=== PATIENT | female | born 2000 | race Caucasian/White ===

== ENCOUNTER 2022-07-27 21:38 | Emergency (ER) | payer OTHER, SELFPAY ==
--- NOTE | ~2022-07-27 | XR_ITS ---
EXAMINATION: XR chest 2V 07/27/2022 22:11 INDICATION: Shortness of breath. Chest pain. PROCEDURE: 2 view chest COMPARISON: 04/10/2006 FINDINGS: The lungs are clear. The cardiomediastinal silhouette is within normal limits. There are no pleural effusions. There is no pneumothorax suspected. IMPRESSION: 1: NO ACUTE CARDIOPULMONARY DISEASE. Reviewed, dictated and finalized at location A.
--- NOTE | 2022-07-27 21:40 | ECG_ITS ---
Measurements Intervals [place] Rate: 98 P: 42 MI: 128 QRS: 43 QRSD: 87 T: 48 QT: 330 QTc: 421 Interpretive Statements SINUS RHYTHM BASELINE ARTIFACT- I, II, AVR, AVL NORMAL ECG NO PREVIOUS ECG AVAILABLE FOR COMPARISON Electronically Signed On 07-28-2022 8:06:32 CDT by Chi Burton D.O.
[2022-07-27 21:41] VITALS: BP 145/95; PULSE 89; RESP 20; TEMP 36.9; O2SAT 100
[2022-07-27 23:44] VITALS: BP 126/76; PULSE 63; RESP 18; TEMP 37; O2SAT 100
[2022-07-27 23:56] VITALS: PULSE 72
[2022-07-28 00:03] VITALS: BP 123/72; PULSE 67; RESP 16; O2SAT 100
[2022-07-28 00:44] VITALS: BP 119/67; PULSE 71; RESP 17; O2SAT 100
[2022-07-28 01:20] LABS: Basophils Percent Auto 0.4 % (0.2-1.2); Eosinophils Absolute Auto 0.1 K/mm3 (0-0.3); Eosinophils Percent Auto 1.9 % (0-4.4); Hematocrit 40.5 % (37.0-47.0); Hemoglobin 13.8 g/dL (12.0-15.0); Immature Granulocyte Absolute 0.02 K/mm3 (0.00-0.031); Immature Granulocyte Percent A 0.3 % (0-0.5); Lymphocytes Absolute Auto 2.63 K/mm3 (0.9-3.2); Lymphocytes Percent Auto 38.2 % (18.3-44.2); Mean Corpuscular HGB Conc 34.1 g/dl (32-36); Mean Corpuscular Hemoglobin 30.9 pg (26-34); Mean Corpuscular Volume 90.8 fl (80-100); Mean Platelet Volume 9.3 fl (7.4-10.4); Monocytes Absolute Auto 0.5 K/mm3 (0.1-0.6); Monocytes Percent Auto 7.1 % (2.6-8.5); Neutrophils Absolute Auto 3.6 K/mm3 (1.3-6.7); Neutrophils Percent Auto 52.1 % (45.5-73.1); Platelet Count Result 264 k/mm3 (150-375); Red Blood Count 4.46 M/mm3 (4.2-5.4); Red Cell Distribution Width 12.1 % (11.5-14.5); White Blood Count 6.9 K/mm3 (4.5-10.0)
--- NOTE | 2022-07-28 01:28 | ED.SOB ---
HPI - SOB/Dyspnea General Chief Complaint: Shortness of Breath/Dyspnea <MASHA Gannon Last Filed: 07/28/22 02:09> Stated Complaint: shortness of breath x Saturday <MASHA Gannon Last Filed: 07/28/22 02:09> Time Seen by Provider: 07/28/22 00:19 <MASHA Gannon Last Filed: 07/28/22 02:09> Source: patient <MASHA Gannon Last Filed: 07/28/22 02:09> Mode of arrival: ambulatory <MASHA Gannon Last Filed: 07/28/22 02:09> Limitations: no limitations <MASHA Gannon Last Filed: 07/28/22 02:09> History of Present Illness HPI Narrative: Patient is a 22-year-old female who presents to the ED with report of chest pain and difficulty breathing. Patient reports she had a panic attack 3 days ago and developed chest pain afterwards. Pain is midsternal. Worse with squeezing arms together, movement. Pain has been fairly constant. She has not tried anything for the pain. Patient also reports having intermittent shortness of breath over the last few days. No significant aggravating or alleviating factors to this. She denies any recent cough or cold symptoms, fever, abdominal pain, nausea, vomiting, lower extremity pain or swelling, history of blood clots or heart disease. Patient does have a Mirena IUD. Patient does mention having increased anxiety recently. She is currently in the process of being switched from buspirone to sertraline. She follows with her primary care doctor for this. She denies any SI or HI. <MASHA Gannon Last Filed: 07/28/22 02:09> Related Data Home Medications: Home Medications Medication Instructions Recorded Confirmed levonorgestrel [Mirena] intrauterine 06/07/22 07/19/22 <MASHA Gannon Last Filed: 07/28/22 02:09> Allergies/Adverse Reactions: Allergies Allergy/AdvReac Type Severity Reaction Status Date / Time cephalexin [From Keflex] AdvReac Mild Hives Verified 07/27/22 21:46 <Alee Hawkins PA-C - Last Filed: 07/28/22 02:09> Review of Systems Review of Systems: CONSTITUTIONAL: Denies fever, chills, or sweats. ENT: Denies rhinorrhea, congestion, sore throat. CARDIOVASCULAR: See HPI. RESPIRATORY: See HPI. GASTROINTESTINAL: Denies abdominal pain, nausea, vomiting, or diarrhea. GENITOURINARY: Denies dysuria or hematuria. SKIN: Denies rash or itching. MUSCULOSKELETAL: Denies back pain, joint pain, or myalgia. <Alee Hawkins PA-C - Last Filed: 07/28/22 02:09> All systems reviewed & are unremarkable except as noted in HPI and below <Alee Hawkins PA-C - Last Filed: 07/28/22 02:09> [facility] Past Medical History Medical History: Medical History Allergies Anxiety BMI 32.0-32.9,adult BMI 35.0-35.9,adult Chest tightness Encounter to establish care Migraine Nausea and vomiting Obese Seasonal allergies Vapes nicotine containing substance <Alee Hawkins PA-C - Last Filed: 07/28/22 02:09> Family History Family History: Family History Father Hypertension Depression Heart disease Mother Depression Thyroid disorder Grandparent Depression Heart disease <Alee Hawkins PA-C - Last Filed: 07/28/22 02:09> Social History Social History: Social History Smoking status: Current every day smoker Tobacco type: e-cigarettes/vaping Alcohol intake: current Alcohol use details: Socially Substance use: never Substance use type: does not use Lack of Transportation: No Lack of Food: Never True Current Housing: I Have Housing Concerned About Future Housing: No Difficulty Paying Gas/Electric Bills: No Difficulty Paying for Meds: No Currently Unemployed: No Education: High School Diploma/GED Difficulty w/ Childcare or Family Care: No Living
[2022-07-28 01:31] LABS: Alanine Aminotransferase 30 U/L (6-35); Albumin Level 4.7 g/dL (3.5-5.1); Alkaline Phosphatase 57 U/L (38-126); Anion Gap 8 mmol/L (8-16); Aspartate Amino Transferase 24 U/L (14-36); Bilirubin,Total 0.4 mg/dL (0.2-1.3); Blood Urea Nitrogen 12 mg/dL (7-17); Calcium 9.3 mg/dL (8.4-10.2); Carbon Dioxide 27 mmol/L (22-30); Chloride 106 mmol/L (98-107); Estimated CRCL calculation 169 ml/min; Estimated Glomerular Filt Rate > 60; Glucose 88 mg/dL (65-110); Potassium 3.9 mmol/L (3.4-5.0); Sodium 141 mmol/L (137-145)
[2022-07-28 01:42] LABS: Troponin I < 0.012 ng/mL (0.000-0.034)
[2022-07-28 02:03] VITALS: BP 127/78; PULSE 81; RESP 17; O2SAT 100
== END 2022-07-28 02:04 | disposition home or self-care (01) ==
PROVIDERS: Emergency Provider Physician Assistant; PCP Nurse Practitioner Family
DX: R07.89 Other chest pain (principal); F41.9 Anxiety disorder, unspecified; R06.81 Apnea, not elsewhere classified; F17.290 Nicotine dependence, other tobacco product, uncomplicated
CPT/HCPCS: 36415; 71046; 80053; 84484; 85025; 85380; 93005; 99284

== ENCOUNTER 2023-10-03 18:42 | Emergency (ER) | payer OTHER, SELFPAY ==
[2023-10-03 18:52] VITALS: BP 132/74; PULSE 72; RESP 20; TEMP 36.7; O2SAT 100
--- NOTE | 2023-10-03 19:16 | ED.URI ---
HPI - URI/Sore Throat General Chief Complaint: Upper Respiratory Infection Stated Complaint: throat/headache Time Seen by Provider: 10/03/23 19:07 Source: patient, RN notes reviewed and old records reviewed Mode of arrival: ambulatory Limitations: no limitations History of Present Illness HPI Narrative: 23 year old female who [facility] with complaints of headache for one week duration and sore throat for the past 2 days. patient states that she has not had a fever, chills or sweats noted or any body aches, Patient reports that she had COVID 6 weeks ago. Patient reports that on Saturday her headache started to move to the front and sides of her head and throat became sore. Patient reports that she has had swollen tonsils for a while but now they are red and painful to swallow. patient reports that she has been taking Ibuprofen for her pain. MD elicited complaint: sore throat and other (headache) Pertinent past history: other (strep throat) Onset (ago): week(s) (1) Pain scale (0-10): 7 Able to tolerate fluids by mouth: Yes Treatments prior to arrival: ibuprofen Related Data Allergies Allergy/AdvReac Type Severity Reaction Status Date / Time cephalexin [From Keflex] AdvReac Mild Hives Verified 07/05/23 09:32 Review of Systems Review of Systems: CONSTITUTIONAL: Denies malaise, chills, sweats, or fever. EYES: Denies visual changes, redness, or discharge. ENT: Reports no rhinorrhea, congestion, sinus pain, otalgia and positive sore throat. CARDIOVASCULAR: Denies chest pain, palpitations, or edema. RESPIRATORY: Reports no cough.? Denies dyspnea. GASTROINTESTINAL: Denies abdominal pain, nausea, vomiting, diarrhea SKIN: Denies rash or itching. MUSCULOSKELETAL: Denies myalgia. NEUROLOGIC: Positive headache. All systems reviewed & are unremarkable except as noted in HPI and below PMFSH Past Medical History Medical History Allergies Anxiety Bilateral foot pain BMI 32.0-32.9,adult BMI 35.0-35.9,adult BMI 37.0-37.9, adult BMI 39.0-39.9,adult Chest tightness Elevated TSH Encounter to establish care Generalized anxiety disorder with panic attacks GERD (gastroesophageal reflux disease) Migraine Nausea and vomiting Obese Screening for diabetes mellitus Seasonal allergies Vapes nicotine containing substance Family History Family History Father Hypertension Depression Heart disease Mother Depression Thyroid disorder Grandparent Depression Heart disease Social History Social History Smoking status: Current every day smoker Tobacco type: e-cigarettes/vaping Alcohol intake: current Alcohol use details: Socially Substance use: never Substance use type: does not use Lack of Transportation: No Lack of Food: Never True Current Housing: I Have Housing Concerned About Future Housing: No Difficulty Paying Gas/Electric Bills: No Difficulty Paying for Meds: No Currently Unemployed: No Education: High School Diploma/GED Difficulty w/ Childcare or Family Care: No Living arrangements: with family Occupation/Education: occupation Additional occupation/education comments: [employer] Gender identity (if verbalized by the patient): Female Sexual Orientation (if Verbalized by the Patient): Straight or Heterosexual Spiritual care concerns: No Agree to blood products: Yes Comments At time of signature, agree with nursing past medical, surgical, social and family history. There is no relevant family history pertinent to the presenting complaint Exam Narrative: GENERAL: Well-appearing, well-nourished, and in no acute distress. HEAD: Normocephalic EYES: PERRLA, conjunctivae clear ENT: Nares clear, turbinates edematous and erythematous, clear discharge. Mucous membranes moist. TM pearly wilkins with dull light reflex bilaterally; no traga
== END 2023-10-03 19:27 | disposition home or self-care (01) ==
PROVIDERS: Emergency Provider Registered Nurse; PCP Family Medicine
DX: J02.0 Streptococcal pharyngitis (principal); F17.290 Nicotine dependence, other tobacco product, uncomplicated; K21.9 Gastro-esophageal reflux disease without esophagitis; E66.9 Obesity, unspecified; Z68.39 Body mass index [BMI] 39.0-39.9, adult
CPT/HCPCS: 87880; 99213; G0463

== ENCOUNTER 2024-10-19 15:54 | Outpatient (CLI) | payer OTHER, SELFPAY ==
--- NOTE | ~2024-10-19 | US_ITS ---
Pelvic ultrasound. Clinical History: First trimester , establish dates and viability Technique: Realtime transabdominal and transvaginal scanning of the pelvis was performed. Color flow Doppler and Doppler spectral analysis were performed. Findings: The uterus is anteverted, and contains an intrauterine gestation. With crown-rump length of 2.1 cm corresponds to an estimated gestational age of 8 weeks 5 days. heart rate is 173 bpm. Neither ovary seen. No adnexal mass seen. There is no evidence of free fluid in the cul de sac. Impression: Live intrauterine gestation, with estimated gestational age of 8 weeks 5 days. heart rate is 17 3 bpm. Sonographic ARA is 05/26/2025. Reviewed, dictated and finalized at location . Impression: Live intrauterine gestation, with estimated gestational age of 8 weeks 5 days. heart rate is 173 bpm. Sonographic ARA is 05/26/2025.
== END 2024-10-19 15:55 | disposition home or self-care (01) ==
LOC: MICIMG 15:55
PROVIDERS: PCP Nurse Practitioner Family; Visit Provider Obstetrics & Gynecology Gynecology
DX: O26.851 Spotting complicating pregnancy, first trimester (principal); Z3A.08 8 weeks gestation of pregnancy
CPT/HCPCS: 76817

== ENCOUNTER 2024-11-02 08:19 | Emergency (ER) | payer OTHER, SELFPAY ==
--- NOTE | 2024-11-02 08:22 | ED_ITS ---
HPI - Extremity Injury (Lower) General Chief Complaint: Extremity Injury, Lower Stated Complaint: Right ankle injury Time Seen by Provider: 11/02/24 08:32 Source: patient and RN notes reviewed Mode of arrival: ambulatory Limitations: no limitations History of Present Illness HPI Narrative: 24-year-old female who is 10 weeks presents with concern for right ankle injury. She reports she twisted the ankle last night. Reports circumferential ankle is painful, more so on the lateral ankle. She reports pain with walking and flexing. MD complaint: ankle injury Related Data Home Medications ?Medication ?Instructions ?Recorded ?Confirmed ?Last Taken ?Type metformin 500 mg tablet,extended mg PO 11/02/24 Unknown History release 24 hr Allergies Allergy/AdvReac Type Severity Reaction Status Date / Time cephalexin (From Keflex) AdvReac Mild Hives Verified 07/05/23 09:32 Review of Systems Review of Systems: CONSTITUTIONAL: Denies malaise, chills, sweats, or fever. SKIN: Denies rash or itching, open skin, laceration, abrasion, redness, warmth MUSCULOSKELETAL: Reports right ankle pain and swelling NEUROLOGIC: Denies numbness, weakness All systems reviewed & are unremarkable except as noted in HPI and below PMFSH Past Medical History Medical History Allergies Anxiety Bilateral foot pain BMI 32.0-32.9,adult BMI 35.0-35.9,adult BMI 37.0-37.9, adult BMI 39.0-39.9,adult Chest tightness Elevated TSH Encounter to establish care Generalized anxiety disorder with panic attacks GERD (gastroesophageal reflux disease) Migraine Nausea and vomiting Obese Screening for diabetes mellitus Seasonal allergies Vapes nicotine containing substance Family History Family History Father Hypertension Depression Heart disease Mother Depression Thyroid disorder Grandparent Depression Heart disease Social History Social History Smoking status: Current every day smoker Tobacco type: e-cigarettes/vaping Alcohol intake: current Alcohol use details: Socially Substance use: never Substance use type: does not use Lack of Transportation: No Lack of Food: Never True Current Housing: I Have Housing Concerned About Future Housing: No Difficulty Paying Gas/Electric Bills: No Difficulty Paying for Meds: No Currently Unemployed: No Education: High School Diploma/GED Difficulty w/ Childcare or Family Care: No Living arrangements: with family Occupation/Education: occupation Additional occupation/education comments: [employer] Gender identity (if verbalized by the patient): Female Sexual Orientation (if Verbalized by the Patient): Straight or Heterosexual Spiritual care concerns: No Agree to blood products: Yes Comments At time of signature, agree with nursing past medical, surgical, social and family history. There is no relevant family history pertinent to the presenting complaint Exam Narrative: GENERAL: Well-appearing, well-nourished, and in no acute distress. HEAD: Normocephalic, atraumatic. EYES: PERRLA, conjunctivae clear NECK: Supple. CHEST: Speaks in full sentences. No respiratory distress. HEART: Regular rate and rhythm. Normal and equal peripheral pulses. EXTREMITIES: Right ankle, foot, digits have grossly normal strength and sensation, grossly normal range of motion. Mother lateral edema without erythema or ecchymosis. 5/5 strength with ankle in digit flexion and extension. Normal sensation with sensitivity to light touch and pain. Lateral ankle tenderness. No open wounds, no skin tenting, no devitalized tissue or atrophy, no trophic changes, no obvious deformity, alignment normal, nearby joints and structures intact. Distal pulses palpable and equal bilaterally, skin warm, dry, pink. Capillary refill less than 3 seconds. SKIN: Warm, dry, no rash. NEURO: Alert and oriented x3. PSYCH: Normal mood and affect Course Course Emergency Course: Patient is 10 weeks , we discussed benefits versus risks of an ankle x- ray at this time. Through shared decision making was decided patient will treat for potential sprain and is symptoms are not improving in 3-4 days will consider an x-ray at that time. Patient is aware of, understands and agrees to treatment plan. Anticipatory guidance given. Patient agrees to follow-up as directed and is aware of reasons to seek care at the emergency department. Portions of this record may have been created with voice recognition software Level of Care: Express Care Visit Vital Signs Vital signs: Reviewed. MDM - Extremity Injury (Lower) MDM Narrative Medical decision making narrative: The patient was evaluated by myself in the express care. History is obtained from patient who is an independent historian and physical exam was performed.? Available medical records were reviewed at this time. ? Exam findings show no acute concerns or changes; patient is non-toxic appearing and is in no distress. Patient is appropriate for outpatient treatment and follow-up. ? I have evaluated and discussed social determinants of health with the patient that could potentially impact subsequent diagnosis and treatment plans. ? Patients injury and pain is consistent with musculoskeletal etiology. No signs of neurological or vascular compromise on exam. Compartments and tissues are soft without signs of compartment syndrome. Pain is felt appropriate for further evaluation on an outpatient basis. Critical Care Time Critical Care Time Critical Care Time: No Discharge Plan Discharge Clinical Impression: Ankle injury Patient Disposition: Home Condition: Stable Instructions: Ankle Sprain (ED) Additional Instructions: Avoid activities that cause pain until the pain subsides. Ice to the area 20-30 minutes 4-6 times a day Elevate above heart Elastic wrap as directed for comfort for the next 5-7 days Walking boot as needed for comfort Tylenol for lesser pain Ibuprofen regularly for the next 2-3 days for the inflammation Follow up with your primary care provider if the condition is not improving within 2-3 days If the condition worsens with numbness, tingling, decrease sensation with wea kness seek treatment in the emergency room immediately. Patient Language: Montserratian Prescriptions: New (DME) Walking boot See Rx Instructions .Route .MEDSUPPLY Qty: 1 0RF Rx Instructions: As directed No Action metformin 500 mg tablet extended release 24 hr PO Follow-up/Referrals: Nicanor Hannah MD [Primary Care Provider] - Stand Alone Forms: Work/School Release IP Time of Disposition: 08:44
[2024-11-02 08:24] VITALS: BP 117/79; PULSE 79; RESP 20; TEMP 36.7; O2SAT 100
== END 2024-11-02 08:48 | disposition home or self-care (01) ==
PROVIDERS: Emergency Provider Nurse Practitioner; PCP Family Medicine
DX: O26.891 Other specified pregnancy related conditions, first trimester (principal); S99.911A Unspecified injury of right ankle, initial encounter; O99.331 Smoking (tobacco) complicating pregnancy, first trimester; F17.290 Nicotine dependence, other tobacco product, uncomplicated; Z3A.10 10 weeks gestation of pregnancy; X50.0XXA Overexertion from strenuous movement or load, initial encounter
CPT/HCPCS: 99213; G0463

== ENCOUNTER 2024-12-16 17:29 | Emergency (ER) | payer OTHER, SELFPAY ==
--- OUTSIDE RECORDS SUMMARY | 2024-12-16 17:31 | XMS_ITS | Continuity of Care Document ---
Author Organization [facility] Address [address] [place] [address] [address] [place] [address] Phone Care Team Providers Care Curriculum Supervisor Name Role Phone Chowdhury OD, Navid Unavailable Unavailable Procedures Procedure Date Eye Exam & Treatment Refraction Advance Directives Directive Yes / No Effective Date File Name No Information Encounters Encounter Description Practice Location Reason(s) For Visit Diagnoses Date Provider Providers Copied on Encounter [facility], [address] [place] [address] [address], [place], [place], [id number], [place] tel:[phone] SEC [facility] [place] No Information Jan- 3-200 8 Chowdhury OD Navid. [address] [facility] [place] , [address], [place], [address], [place]. tel:[phone] Family History Family Member Type Diagnosis Age At Onset No Information Payers Payer name Insurance type Covered libertarian ID Authoriza tion(s) Medicaid [facility] [id number] Social History Type Description Quantity Date Captured [...]
--- OUTSIDE RECORDS SUMMARY | 2024-12-16 17:31 | XMS_ITS | Clinical Summary ---
Author Organization [facility] Address [address] [place] [address] Care Team Providers Care Regional Commercial Sales Manager Name Role Phone Unavailable Primary Care Provider Unavailabl e Source Comments [facility],non-owned Affiliates and Associated Physician Practices is amultiple site organization consisting of ambulatory clinics and hospital sitesin [place], [place], [place] and [place]. This disclosure is being madepursuant to the Care Everywhere program and may not contain all information available regarding this patient. Last updated 18.[facility] Allergies No known active allergies Medications * Be aware that medications may not be up to date on this document. Alwaysverify current medications with the patient. Escitalopram Oxalate (LEXAPRO PO) Active MedroxyPROGESTE Hector Acetate (DEPO-PROVERA IM) Active montelukast (SINGULAIR) 10 MG tablet Take 10 mg by mouth at bedtime Active Family History Medical History Relation Name Comments Hypertension Father Relation Name Status Comments Father Social History Tobacco Use Types Packs/Day Years Used Date Smoking Tobacco: Never Assessed Comments Unknown Sex and Gender Information Value Date Recorded Sex Assigned at Not on file Legal Sex Female 10:01 AM CDT Gender Identity Not on file Sexual Orientation Not on file Last Filed Vital Signs Vital Sign Reading Time Taken Comments Blood Pressure 110/72 12/27/2016 2:22 PM CDT Pulse 82 12/27/2016 2:22 PM CDT Temperature 37.2 C (98.9 F) 12/27/2016 2:22 PM CDT Respiratory Rate - - Oxygen Saturation 98% 12/27/2016 2:22 PM CDT Inhaled Oxygen Concentration - - Weight 92.5 kg (204 lb) 12/27/2016 2:22 PM CDT Height 167.6 cm (5' 6) 12/27/2016 2:22 PM CDT Body Mass Index 32.93 12/27/2016 2:22 PM CDT Plan of Treatment Health Maintenance Due Date Last Done Comments HIV SCREENING 2017 HPV VACCINE (1 - 3-dose series) 2017 CHLAMYDIA/GONORRHEA SCREENING 2018 MENINGOCOCCAL (Group B) VACC INE SHARED DECISION-MAKING (1 of 2 - Standard) 2018 HEPATITIS C SCREENING 01/16/2020 DTAP/TDAP/TD VACCINES (1 - Tdap) 2021 HEPATITIS B VACCINE (1 of 3 - 19+ 3-dose series) 2021 COVID-19 VACCINE (1 - 2023-2 5 season) 2024 DEPRESSION SCREENING 05/13/2024 INFLUENZA VACCINE (#1) 2025 ZOSTER VACCINE (1 of 2) 01/21/2052 HIB VACCINE Aged Out No longer eligi ble based on patient's age to complete this topic MENINGOCOCCAL GROUPS A/C/Y/W VACCINE Aged Out No longer eligible b ased on patient's age to complete this topic PNEUMOCOCCAL VACCINE Aged Out No long er eligible based on patient's age to complete this topic
--- OUTSIDE RECORDS SUMMARY | 2024-12-16 17:31 | XMS_ITS | Clinical Summary ---
Author Organization [address] Address [address] [place] [id number] Care Team Providers Care Newspaper Writer Name Role Phone Nicanor Hannah MD Primary Care Provider [phone] Allergies Active Allergy Reactions Criticality Noted Date Comments Amoxicillin Rash Medium 11/07/2023 Cephalexin Medications levonorgestreL (MIRENA) IUD 1 each by intrauterine route once Active albuterol HFA (PROVENTIL HFA,VENTOLIN HFA,PROAIR HFA) 90 mcg/actuation inhaler Inhale 1-2 puffs every 6 (six) hours as needed for wheezing [address] (PROTONIX) 20 mg EC tablet Take 1 tablet (20 mg total) by mouth daily 20 tablet 3 Active ondansetron (ZOFRAN) 4 mg tablet Take 1 tablet (4 mg total) by mouth every 6 (six) hours 12 tablet 4 Active omeprazole (PriLOSEC) 20 mg capsule Take 1 capsule (20 mg total) by mouth 2 (two) times a day 30 capsule 4 Active Active Problems Problem Noted Date Diagnosed Date Enlarged tonsils 07/16/2016 Comments Yes Encounters Date Type Department Care Team Description 09/29/2024 2:22 PM CDT - 09/29/2024 4:09 PM CDT Emergency [facility] Emergency Department [address] [place] [address] Van Rogers MD Pelvic cramping (Primary Dx); , first, first trimester Discharge Disposition: Discharge to home or self care from Last 3 Months Medical History Medical History Date Comments History of recurrent pneumonia H istory of pneumonia - hospitialized 2005 (Added by TW Conv) GERD (gastroesophageal reflux disease) Family History Medical History Relation Name Comments Asthma Father Family history of asthma - (Added by TW Conv) Heart disease Father Family history of cardiac disorder - (Added by TW Conv) Asthma Other Family history of asthma - (Added by TW Conv) Cancer Other Family history of malignant neoplasm - (Added by TW Conv) Heart disease Other Family history of cardiac disorder - (Added by TW Conv) Hypertension Other Family history of hypertension - (Added by TW Conv) Mental illness Other Family histor y of mental disorder - (Added by TW Conv) Relation Name Status Comments Father Other Social History Tobacco Use Types Packs/Day Years Used Date Smoking Tobacco: Every Day Vaping Smokeless Tobacco: Never Tobacco Cessation:Ready to Q uit: Not Asked; Counseling Given: Not Answered Personal Safety Answer Date Recorded Have you ever been in or are you currently in a harmful physical or emotional relationship or is someone making you feel afraid or unsafe? 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 Gender Identity Not on file Sexual Orientation Not on file Obstetrics History Para Term AB IAB SAB Ectopic Multiple Livin g Live Births 1 Date Outcome GA Total Labor Labor/2nd/3rd Weight Sex Type Anes PTL Shanae A1 A5 Name Clin Current Last Filed Vital Signs Vital Sign Reading Time Taken Comments Blood Pressure 128/85 09/29/2024 12:15 PM CDT Pulse 78 09/29/2024 12:15 PM CDT Temperature 36.7 C (98.1 F) 09/29/2024 10:40 AM CDT Respiratory Rate 18 09/29/2024 12:15 PM CDT Oxygen Saturation 100% 09/29/2024 12:15 PM CDT Inhaled Oxygen Concentration - - Weight 111.6 kg (246 lb) 09/29/2024 10:40 AM CDT Height 162.6 cm (5' 4) 09/29/2024 10:40 AM CDT Body Mass Index 42.23 09/29/2024 10:40 AM CDT Plan of Treatment Health Maintenance Due Date Last Done Comments Cervical Cancer Screening 2002 Depression Screening 2002 Hepatitis C Screening 2002 Pneumococcal vaccine <65 (1 of 1 - PPSV23) 01/21/2008 04/22/2003, 2002, 2002, Additional history exists Meningococcal B Vaccine (1 o f 2 - Standard) 2018 Regular Well Visit/Exam 18-64 01/21/2020 DTaP/Tdap/Td Vaccine (7 - Td or Tdap) 01/01/2024 12/31/2013, 12/26/2007, 07/22/2003, Additional history exists Influenza Vaccine (#1) 2025 6, 03/02/2014, 05/22/2010, Additional history exists Hepatitis B Screening Completed 2002 , 2002, 2002 Varicella Vaccines Completed 12/26/2007, 01/29/2003 HPV Vaccines Completed 07/13/2014, 07/2013, 12/31/2013 Procedures Procedure Name Priority Date/Time Associated Diagnosis Comments URINALYSIS AND REFLEX TO MICROSCOPIC AND CULTURE STAT 09/29/2024 3:15 PM CDT US OB UNDER 14 WEEKS ED 09/29/2024 1:30 PM CDT DIFFERENTIAL AUTO STAT 09/29/2024 10: 50 AM CDT HCG, BLOOD, QUANTITATIVE STAT 09/29/2024 10:50 AM CDT CBC WITH AUTO DIFFERENTIAL STAT 09/29/2024 10:50 AM CDT from Last 3 Months Results * Urinalysis reflex to microscopic and culture Urine (09/29/2024 3:15 PM CDT) Color, ur Yellow Yellow Clarity, ur Clear Clear [facility] ([place]) Specific gravity, ur 1.015 1.003 - 1.030 [facility] ([place]) pH, urine 6.0 [facility] ([place]) Comment: Interpretive Data U rine pH is affected by diet, medications, systemic acid-base disturbances, and renal tubular function. pH may affect urinary stone formation. For example, urine pH below 6.0 may help reduce the tendency for calcium phosphate stones and pH greater than 6.0 may reduce the tendency for uric acid stone formation. Source: [facility] Current Interpretive Data was last revised on 2017 Protein, ur ql Negative Negative [facility] ([place]) Glucose, ur ql Negative Negative [facility] ([place]) Ketones, ur Negative Negative [facility] ([place]) Bilirubin, ur Negative Negative [facility] ([place]) Blood, ur Negative Negative [facility] ([place]) Urobilinogen, ur <2.0 <2.0 mg/dL [facility] ([place]) Nitrite, ur Negative Negative [facility] ([place]) Leukocyte esterase, ur Negative Negative [facility] ([place]) UA reflex comment Reflex conditions for microscopic UA and culture not met. [facility] ([place]) Urine 09/29/2024 3:15 PM CDT 09/29/2024 3:24 PM CDT Van Rogers MD LAB MICROBIOLOGY - GENERAL O RDERABLES Final Result [facility] ([place]) 1 [facility] Department [place] [address] * US Ob Under 14 Weeks (09/29/2024 1:30 PM CDT) Anatomical Region Laterality Modality Abdomen N/A Ultrasound 09/29/2024 1:52 PM CDT Narrative 09/29/2024 1:55 PM CDT EXAM DESCRIPTION: US OB UNDER 14 WEEKS REASON FOR STUDY: vaginal bleeding- approx 6 weeks Beta-hC,947 TECHNIQUE: Transabdominal and transvaginal images acquired of the pelvis. COMPARISON: 10/13/2023 FINDINGS: Clinical gestational age: 5 weeks 6 days Clinical estimated Due Date: 05/26/2025 Intrauterine gestational sac: Present Yolk sac: Present Subchorionic bleed: No Placenta: Not identified Mean sac diameter: 1.6 cm [place]-rump length: 0.3 cm heart rate: 103 bpm Gestational age by this ultrasound: 6 weeks 1 day ARA by this ultrasound: 05/24/2025 Uterus: The uterus is anteverted , measuring 9.2 x 5.0 x 2.8 cm. Right Ovary/Adnexa: The right ovary measures 3.9 x 2.4 x 2.3 cm. There is documentation of color Doppler flow in the right ovary. The right ovary appears unremarkable. No adnexal mass. Left Ovary/Adnexa: The left ovary measures 3.9 x 2.5 x 2.4 cm. There is documentation of color Doppler flow in the left ovary. The left ovary appears unremarkable. No adnexal mass. Free Fluid: None. Other Findings: None. IMPRESSION: Single live intrauterine . THIS IS AN ELECTRONICALLY VERIFIED FINAL REPORT 09/29/2024 1:55 PM - Electronically signed by Evelio Dong M.D. RB: [place] Report ID: [id number] Reading Location: [id number] Procedure Note Evelio Dong MD - 09/29/2024 EXAM DESCRIPTION: US OB UNDER 14 WEEKS REASON FOR STUDY: vaginal bleeding- approx 6 weeks Beta-hC,947 TECHNIQUE: Transabdominal and transvaginal images acquired of thepelvis. COMPARISON: 10/13/2023 FINDINGS: Clinical gestational age: 5 weeks 6 days Clinical estimated Due Date: 05/26/2025 Intrauterine gestational sac: Present Yolk sac: Present Subchorionic bleed: No Placenta: Not identified Mean sac diameter: 1.6 cm [place]-rump length: 0.3 cm heart rate: 103 bpm Gestational age by this ultrasound: 6 weeks 1 day ARA by this ultrasound: 05/24/2025 Uterus: The uterus is anteverted , measuring 9.2 x 5.0 x 2.8 cm. Right Ovary/Adnexa: The right ovary measures 3.9 x 2.4 x 2.3 cm. Thereis documentation of color Doppler flow in the right ovary. The right ovary appears unremarkable. No adnexal mass. Left Ovary/Adnexa: The left ovary measures 3.9 x 2.5 x 2.4 cm. There is documentation of color Doppler flow in the left ovary. The left ovaryappears unremarkable. No adnexal mass. Free Fluid: None. Other Findings: None. IMPRESSION: Single live intrauterine . THIS IS AN ELECTRONICALLY VERIFIED FINAL REPORT 09/29/2024 1:55 PM - Electronically signed by Evelio Dong M.D. RB: ARNOLD Report ID: [id number] Reading Location: [place] [address] us Cassius Rebolledo MD IMG OB US PROCEDURES Final Res ult * Differential, auto (09/29/2024 10:50 AM CDT) Neutrophil abs 3.93 1.50 - 6.50 K/cumm Imm gran abs 0.02 0.00 - 0.10 K/cumm [facility] ([place]) Lymphocyte abs 1.96 0.80 - 3.30 K/cumm [facility] ([place]) Monocyte abs 0.46 0.20 - 0.80 K/cumm [facility] ([place]) Eosinophil abs 0.26 0.00 - 0.50 K/cumm [facility] ([place]) Basophil abs 0.03 0.00 - 0.10 K/cumm [facility] ([place]) Neutrophil pct 59.0 % [facility] ([place]) Comment: Interpretive Data Percent cell count reference ranges are not reported, since discordance with absolute values may lead to misinterpretation of CBC data. Current Interpretive Data was last revised on 2017. Imm gran pct 0.3 % [facility] ([place]) Comment: Interpretive Data Percent cell count reference ranges are not reported, since discordance with absolute values may lead to misinterpretation of CBC data. Current Interpretive Data was last revised on 2017. Lymphocyte pct 29.4 % [facility] ([place]) Comment: Interpretive Data Percent cell count reference ranges are not reported, since discordance with absolute values may lead to misinterpretation of CBC data. Current Interpretive Data was last revised on 2017. Monocyte pct 6.9 % [facility] ([place]) Comment: Interpretive Data Percent cell count reference ranges are not reported, since discordance with absolute values may lead to misinterpretation of CBC data. Current Interpretive Data was last revised on 2017. Eosinophil pct 3.9 % [facility] ([place]) Comment: Interpretive Data Percent cell count reference ranges are not reported, since discordance with absolute values may lead to misinterpretation of CBC data. Current Interpretive Data was last revised on 2017. Basophil pct 0.5 % [facility] ([place]) Comment: Interpretive Data Percent cell count reference ranges are not reported, since discordance with absolute values may lead to misinterpretation of CBC data. Current Interpretive Data was last revised on 2017. Blood 09/29/2024 10:5 0 AM CDT 09/29/2024 10:54 AM CDT us Van Rogers MD LAB BLOOD ORDERABLES Final R esult [facility] ([place]) [facility] Department [place] [address] * CBC with auto differential (09/29/2024 10:50 AM CDT) WBC 6.66 3.80 - 9.90 K/cumm Hgb 12.9 11.9 - 15.5 g/dL [facility] ([place]) Hct 37.7 35.6 - 45.5 % [facility] ([place]) Plt 314 150 - 400 K/cumm [facility] ([place]) MPV 10.2 9.1 - 12.3 fL [facility] ([place]) RBC 4.31 3.90 - 5.20 M/cumm [facility] ([place]) MCV 87.5 81.3 - 96.4 fL [facility] ([place]) MCH 29.9 27.1 - 33.3 pg [facility] ([place]) MCHC 34.2 32.3 - 35.7 g/dL [facility] ([place]) RDW CV 13.1 11.1 - 14.9 % [facility] ([place]) RDW SD 42.1 35.7 - 48.1 fL [facility] ([place]) NRBC abs 0.00 0.00 - 0.01 K/cumm [facility] ([place]) Blood Venous blood specimen / Unknown 09/29/2024 10:50 AM CDT 09/29/2024 10:54 AM CDT Van Rogers MD LAB BLOOD ORDERABLES Final R esult Performing Organization Address City/[facility] Co de Phone Number [facility] ([place]) 1 [facility] [place] [address] * (ABNORMAL) hCG, blood, quantitative (09/29/2024 10:50 AM CDT) hCG, quant 21,947.0( H) 0.0 - 5.0 IUnits/L Comment: Interpretive Data Male: < 5 IU/L Non- premenopausal Female: <5 IU/L The Keerthi hCG Beta Quant assay procedure was used. Results from different manufacturers or methods may not be comparable. Serial testing should be performed using the same method. Interpretive Data was last revised on 2023 Blood 09/29/2024 10:5 0 AM CDT 09/29/2024 10:54 AM CDT Van Rogers MD LAB BLOOD ORDERABLES Final R esult Performing Organization Address City/[facility] Co de Phone Number [facility] ([place]) [address] [facility] [place] [address] from Last 3 Months Insurance AETNA SIG [id number] AETNA SIG [id number] Care Teams Newspaper Writer Relationship Specialty Start Date End Date Nicanor Hannah MD [address] [address] PCP - General Family Medicine 11/24/22
--- OUTSIDE RECORDS SUMMARY | 2024-12-16 17:31 | XMS_ITS | Clinical Summary ---
Author Organization [facility] Address [address] [place] [address] Phone Care Team Providers Care Polymer Engineer Name Role Phone Isabell Kaur MD Primary Care Provider [phone] Medications escitalopram (LEXAPRO) 20 MG TabletIndication s:Major Depressive Disorder Take 20 mg by mouth daily. 02/17/2018 Active Active Problems Problem Noted Date Diagnosed Date MDD (major depressive disorder) 03/15/2018 Family History Medical History Relation Name Comments No Known Problems Brother 1 Andrea No Known Problems Brother 2 Bill Chronic Obstructive Pulmonary Disease Father Holden id Anxiety disorder Mother Dana Depression Mother Dana Thyroid Cancer Mother Dana Relation Name Status Comments Brother 1 Andrea Alive Brother 2 Bill Alive Father Brian Alive Mother Dana Alive Social History Tobacco Use Types Packs/Day Years Used Date Smoking Tobacco: Never Assessed Comments Unknown Sex and Gender Information Value Date Recorded Sex Assigned at Not on file Legal Sex Female 1:15 PM CDT Gender Identity Not on file Sexual Orientation Not on file Plan of Treatment Health Maintenance Due Date Last Done Comments Hepatitis C Virus (HCV) Screening 2002 Meningococcal B Immunization (1 of 2 - Standard) 2018 SARS-COV-2 Immunization ( season) 2024 Influenza Immunization (#1) 01/11/202511/2015, 03/02/2014, 05/20/2003, Additional history exists Respiratory Syncytial Virus (RSV) Immunization (Adult) (1 - 1-dose 75+ series) 2077 Hepatitis B Immunization Completed 003, 2002, 2002 Pneumococcal Immunization Combined Aged Out 04/22/2003, 2002, 2002, Additional history exists No longer eligible based on patient's age to complete this topic Hepatitis A Immunization Discontinued 01/18/2005, 01/11 Measles Mumps Rubella (MMR) Immunization Discontinued 12/26/2007, 04/22/2003 Polio (IPV) Immunization Discontinued 008, 07/22/2003, 2002, Additional history exists Varicella Immunization Discontinued 12/26/2007, 2002 DTaP/Tdap/Td Immunization Discontinued 2013, 12/26/2007, 07/22/2003, Additional history exists TdaP Immunization Completed 12/31/2013 Human Papillomavirus (HPV) Immunization Completed 07/13/2014, 03/15/2014, 12/31/2013 Meningococcal Immunization (ACWY) Completed 01/28/2018, 12/31/2013 Rotavirus Immunization Aged Out No lo nger eligible based on patient's age to complete this topic Insurance Care Teams Polymer Engineer Relationship Specialty Start Date End Date Isabell Kaur MD [address] [place] [address] PCP - General Pediatrics 02/05/18
--- OUTSIDE RECORDS SUMMARY | 2024-12-16 17:34 | XMS_ITS | Continuity of Care Document ---
Author Organization [facility] Address [address] [place] [address] [address] [place] [address] Phone Care Team Providers Care Epic Cadence Specialists Name Role Phone Chowdhury OD, Navid Unavailable Unavailable Procedures Procedure Date Eye Exam & Treatment Refraction Advance Directives Directive Yes / No Effective Date File Name No Information Encounters Encounter Description Practice Location Reason(s) For Visit Diagnoses Date Provider Providers Copied on Encounter [facility], [address] [place] [address] [address], [place], [place], [id number], [place] tel:[phone] [facility] [place] No Information Jan- 3-200 8 Chowdhury OD Navid. [address] [place] , [address], [place], [address], [place]. tel:[phone] Family History Family Member Type Diagnosis Age At Onset No Information Payers Payer name Insurance type Covered constitution party ID Authoriza tion(s) Medicaid [facility] [id number] Social History Type Description Quantity Date Captured [...]
[2024-12-16 17:36] VITALS: BP 121/69; PULSE 91; RESP 16; TEMP 36.6; O2SAT 100
--- NOTE | 2024-12-16 17:51 | ED.SKABFB ---
HPI - Skin/Abscess/Foreign Bdy General Chief complaint: Skin/Abscess/Foreign Body Stated complaint: Skin Problem Time Seen by Provider: 12/16/24 17:41 Source: patient and RN notes reviewed Mode of arrival: ambulatory Limitations: no limitations History of Present Illness HPI narrative: Patient presents today complaining of possible ringworm to left breast x1 month. Reports severe itching but denies pain or drainage. She has been using some topical clotrimazole x2 weeks twice daily without improvement. She is currently 17 weeks . Related Data Home Medications ?Medication ?Instructions ?Recorded ?Confirmed ?Last Taken ?Type metformin 500 mg tablet,extended mg PO 11/02/24 Unknown History release 24 hr PO DAILY 12/16/24 Unknown History ergocalciferol (vitamin D2) 1,250 12/16/24 Unknown History mcg (50,000 unit) capsule iron PO DAILY 12/16/24 Unknown History Allergies Allergy/AdvReac Type Severity Reaction Status Date / Time cephalexin (From Keflex) AdvReac Mild Hives Verified 12/16/24 17:41 [facility] Past Medical History Medical History BMI 39.0-39.9,adult Elevated TSH Bilateral foot pain BMI 37.0-37.9, adult Screening for diabetes mellitus GERD (gastroesophageal reflux disease) Generalized anxiety disorder with panic attacks Chest tightness BMI 35.0-35.9,adult Vapes nicotine containing substance BMI 32.0-32.9,adult Seasonal allergies Encounter to establish care Migraine Anxiety Allergies Obese Nausea and vomiting Family History Family History Father Hypertension Depression Heart disease Mother Depression Thyroid disorder Grandparent Depression Heart disease Social History Social History Smoking status: Current every day smoker Tobacco type: e-cigarettes/vaping Alcohol intake: current Alcohol use details: Socially Substance use: never Substance use type: does not use Lack of Transportation: No Lack of Food: Never True Current Housing: I Have Housing Concerned About Future Housing: No Difficulty Paying Gas/Electric Bills: No Difficulty Paying for Meds: No Currently Unemployed: No Education: High School Diploma/GED Difficulty w/ Childcare or Family Care: No Living arrangements: with family Occupation/Education: occupation Additional occupation/education comments: [employer] Gender identity (if verbalized by the patient): Female Sexual Orientation (if Verbalized by the Patient): Straight or Heterosexual Spiritual care concerns: No Agree to blood products: Yes Comments At time of signature, I have reviewed and agree with nursing past medical, surgical, social and family history unless otherwise noted. Please see nursing chart for further information. There is no relevant family history pertinent to the presenting complaint Exam Narrative: GENERAL: Well-appearing, well-nourished, and in no acute distress. HEAD: Normocephalic, atraumatic. EYES: EOMI. No redness or drainage. Conjunctivae normal. ENT: Mucous membranes pink and moist. NECK: Normal AROM. CHEST: No respiratory distress. EXTREMITIES: Normal range of motion. No edema. SKIN: Warm, dry. Capillary refill normal. Normal skin turgor. 1.5 x 2 cm flat erythematous lesion, raised and peeling on the perimeter. Nontender. No induration or fluctuance. No drainage or crusting. NEURO: No focal deficits. Alert and oriented x3. Gait steady. PSYCH: Normal affect. No signs of depression or anxiety. Course Course Level of Care: Express Care Visit Vital Signs Vital signs: Vital Signs Temperature 97.9 F 12/16/24 17:36 Pulse Rate 91 12/16/24 17:36 Respiratory Rate 16 12/16/24 17:36 Blood Pressure 121/69 12/16/24 17:36 Pulse Oximetry 100 12/16/24 17:36 Oxygen Delivery Room Air 12/16/24 17:36 Temperature 97.9 F 12/16/24 17:36 Pulse Rate 91 12/16/24 17:36 Respiratory Rate 16 12/16/24 17:36 Blood Pressure 121/69 12/16/24 17:36 Pulse Oximetry 100 12/16/24 17:36 Oxygen Delivery Room Air 12/16/24 17:36 Reviewed MDM - Skin/Abscess/Foreign Bdy MDM Narrative Medical decision making narrative: 24-year-old female patient with a pruritic lesion to the left breast x1 month. Lotrimin x2 weeks without improvement. Upon exam, 1.5 x 2 cm erythematous macular lesion with raised and crusting perimeter. Possible fungal etiology, but unclear. Will treat with ketoconazole/1% hydrocortisone combo with recommendation for follow-up in 1 week if symptoms are not improving. Patient agrees with plan. Vital signs stable. Anticipatory guidance given. Differential Diagnosis Differential diagnosis: Likely abscess of skin or subcutaneous tissue, dermatophytosis, cellulitis, eczema, impetigo and contact dermatitis Critical Care Time Critical Care Time Critical Care Time: No Discharge Plan Discharge Clinical Impression: Rash Patient Disposition: Home Condition: Stable Additional Instructions: Use the ketoconazole mixed with over the counter Hydrocortisone cream once daily on your rash. If after 1 week you feel that your rash is not improving, please follow up with your PCP or OB. Patient Language: Mongolian Prescriptions: New ketoconazole 2 % cream 1 applic topical DAILY 14 Days Qty: 15 0RF No Action metformin 500 mg tablet extended release 24 hr PO (DME) Walking boot See Rx Instructions .Route .MEDSUPPLY Qty: 1 0RF Rx Instructions: As directed ergocalciferol (vitamin D2) 1,250 mcg (50,000 unit) capsule PO DAILY iron PO DAILY Follow-up/Referrals: Nicanor Hannah MD [Primary Care Provider] - Time of Disposition: 17:50
== END 2024-12-16 17:53 | disposition home or self-care (01) ==
PROVIDERS: Emergency Provider Nurse Practitioner; PCP Family Medicine
DX: O99.891 Other specified diseases and conditions complicating pregnancy (principal); R21 Rash and other nonspecific skin eruption; Z3A.17 17 weeks gestation of pregnancy; O99.612 Diseases of the digestive system complicating pregnancy, second trimester; K21.9 Gastro-esophageal reflux disease without esophagitis; O99.332 Smoking (tobacco) complicating pregnancy, second trimester; F17.290 Nicotine dependence, other tobacco product, uncomplicated
CPT/HCPCS: 99213; G0463

== ENCOUNTER 2025-01-07 14:49 | Emergency (ER) | payer OTHER, SELFPAY ==
--- OUTSIDE RECORDS SUMMARY | 2008-01-14 07:46 | XMS_ITS | Continuity of Care Document ---
Author Organization [facility] Address [address] [place] [address] [address] [place] [address] Phone Care Team Providers Care Senior Health Consultant Name Role Phone Chowdhury OD, Navid Unavailable Unavailable Procedures Procedure Date Eye Exam & Treatment Refraction Advance Directives Directive Yes / No Effective Date File Name No Information Encounters Encounter Description Practice Location Reason(s) For Visit Diagnoses Date Provider Providers Copied on Encounter Located within [facility], [address] [place] [address] [address], [place], [place], [id number], [place] tel:[phone] SEC [facility] [place] No Information Jan- 3-200 8 Chowdhury OD Navid. [address] [facility] [place] , [address], [place], [address], [place]. tel:[phone] Family History Family Member Type Diagnosis Age At Onset No Information Payers Payer name Insurance type Covered republican ID Authoriza tion(s) Medicaid [facility] [id number] Social History Type Description Quantity Date Captured Comments Sex Female Smoking Status No Information Chief Complaint And Reason For Visit No Information Reason For Referral Reason For Referral No Information History Of Present Illness Encounter Date Complaint History Of Prese nt Illness No Information Functional Status Date Functional Assessmen t No Information Instructions Date Instruction Additional Infor mation No Information Assessments Type Assessment Date No Information Patient Care Teams Name Effective Dates (start - stop) Status Members No Information
--- OUTSIDE RECORDS SUMMARY | 2008-01-14 07:46 | XMS_ITS | Continuity of Care Document ---
Author Organization [facility] Address [address] [place] [address] [address] [place] [address] Phone Care Team Providers Care Channel Sales Manager Name Role Phone Chowdhury OD, Navid Unavailable Unavailable Procedures Procedure Date Eye Exam & Treatment Refraction Advance Directives Directive Yes / No Effective Date File Name No Information Encounters Encounter Description Practice Location Reason(s) For Visit Diagnoses Date Provider Providers Copied on Encounter [facility], [address] [place] [address] [address], [place], [place], [id number], [place] tel:[phone] SEC [facility] [place] No Information Jan- 3-200 8 Chowdhury OD Navid. [address] [facility] [place] , [address], [place], [address], [place]. tel:[phone] Family History Family Member Type Diagnosis Age At Onset No Information Payers Payer name Insurance type Covered republican ID Authoriza tion(s) Medicaid [facility] [id number] Social History Type Description Quantity Date Captured [...]
--- OUTSIDE RECORDS SUMMARY | 2025-01-07 10:56 | XMS_ITS | Encounter Summary ---
Author Organization [facility] Healthcare Address [address] [place] [address] Care Team Providers Care Sales Development Executive Name Role Phone Nicanor Hannah MD Primary Care Provider [phone] Reason for Visit * Diagnostic Imaging (Routine) - Pending Review Specialty Diagnoses / Procedures Referred By Contac t Referred To Contact Diagnoses Encounter for screening, unspecified Procedures US Ob 14 Weeks Or Over US Ob Under 14 Weeks Dione Magaña MD [address] [address] Phone: tel: fax: [address] [address] Referral ID Status Reason Start Date Expiration Date V isits Requested Visits Authorized [id number] Pending Review 12/17/2024 01/16/2026 1 1 Encounter Details Date Type Department Care Team (Latest Contact Info) Description 01/07/2025 10:56 AM CDT Hospital Encounter [facility] [address] [place] [id number] Encounter for screening, unspecified Social History Tobacco Use Types Packs/Day Years Used Date Smoking Tobacco: Every Day Vaping Smokeless Tobacco: Never Personal Safety Answer Date Recorded Have you ever been in or are you currently in a harmful physical or emotional relationship or is someone making you feel afraid or unsafe? 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 Gender Identity Not on file Sexual Orientation Not on file documented as of this encounter Plan of Treatment Pending Results Name Type Priority Associated Diagnoses Date /Time US Ob 14 Weeks Or Over Imaging Schedule Routine, Read Routine (OP Routine) Encounter for screening, unspecified 01/07/2025 12:50 PM CDT Scheduled Orders Name Type Priority Associated Diagnoses Orde r Schedule US Ob 14 Weeks Or Over Imaging Schedule Routine, Read Routine (OP Routine) Encounter for screening, unspecified Once for 1 Occurrences starting 01/07/2025 until 01/07/2025 documented as of this encounter Visit Diagnoses Diagnosis Encounter for screening, unspecified documented in this encounter Care Teams Sales Development Executive Relationship Specialty Start Date End Date Nicanor Hannah MD [address] [address] PCP - General Family Medicine 11/24/22 documented as of this encounter
[2025-01-07 14:53] VITALS: BP 135/77; PULSE 92; RESP 20; TEMP 36.6; O2SAT 100
--- OUTSIDE RECORDS SUMMARY | 2025-01-07 14:53 | XMS_ITS | Clinical Summary ---
Author Organization [facility] Address [address] [place] [address] Phone Care Team Providers Care Brand Coordinator Name Role Phone Isabell Kaur MD Primary Care Provider Medications escitalopram (LEXAPRO) 20 MG TabletIndication s:Major [...] to complete this topic Insurance Care Teams Brand Coordinator Relationship Specialty Start Date End Date Isabell Kaur MD [address] [place] [address] PCP - General Pediatrics 02/05/18
--- OUTSIDE RECORDS SUMMARY | 2025-01-07 14:53 | XMS_ITS | Clinical Summary ---
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
--- OUTSIDE RECORDS SUMMARY | 2025-01-07 14:53 | XMS_ITS | Clinical Summary ---
Author Organization [facility] [employer] Address [address] [place] [address] Care Team Providers Care Transcription Typist Name Role Phone Unavailable Primary Care Provider Unavailabl e Source Comments [facility] [employer],non-owned Affiliates and Associated Physician Practices is amultiple site organization consisting of ambulatory clinics and hospital sitesin [place], [place], [place] and [place]. This disclosure is being madepursuant to the Care Everywhere program and may not contain all information available regarding this patient. Last updated 18.[facility] [employer] Allergies No known active allergies Medications * [...]
--- NOTE | 2025-01-07 14:55 | ED_ITS ---
HPI - Skin/Abscess/Foreign Bdy General Chief complaint: Skin/Abscess/Foreign Body Stated complaint: rash spreading Time Seen by Provider: 01/07/25 15:00 Source: patient Mode of arrival: ambulatory Limitations: no limitations History of Present Illness HPI narrative: Fareed is a 24-year-old female patient presenting to the clinic today with complaints a rash that is spreading all over her body. She reports she in itially had a rash to the left breast cleavage and started applying clotrimazole cream to that area 1 month ago. She was using clotrimazole cream at that time without relief. States the rash was very itchy and was painful after scratching. She was seen in the [facility] and diagnosed with tinea corpus and given ketoconazole cream to apply to the area on December 16, 2024. She reports now that the rash is spreading and there was no relief with the ketoconazole. Rash has changed in appearance and is now red, raised, and scaly appearing. Has been using the ketoconazole cream to the new areas without relief. She is 20 weeks . States she has saw her OBGYN and they do not think her rash is related to her . Cannot get in to see a insurance collector until February. Has not followed up with her primary care provider as of yet. Related Data Home Medications ?Medication ?Instructions ?Recorded ?Confirmed ?Last Taken ?Type metformin 500 mg tablet,extended mg PO 11/02/24 Unkno wn History release 24 hr PO DAILY 12/16/24 Unknown H istory ergocalciferol (vitamin D2) 1,250 12/16/24 Unknown H istory mcg (50,000 unit) capsule iron PO DAILY 12/16/24 Unknown H istory Allergies Allergy/AdvReac Type Severity Reaction Status Date / Time cephalexin (From Keflex) AdvReac Mild Hives Verified 01/07/25 15:03 Review of Systems Review of Systems: Pertinent positives per HPI. Patient denies any fever, chills, headache, visual changes, dizziness, cough, runny nose, sore throat, shortness of breath, chest pain, palpitations, nausea, vomiting, diarrhea, constipation, abdominal pain, or any urinary issues. PMFSH Past Medical History Medical History BMI 39.0-39.9,adult Elevated TSH Bilateral foot pain BMI 37.0-37.9, adult Screening for diabetes mellitus GERD (gastroesophageal reflux disease) Generalized anxiety disorder with panic attacks Chest tightness BMI 35.0-35.9,adult Vapes nicotine containing substance BMI 32.0-32.9,adult Seasonal allergies Encounter to establish care Migraine Anxiety Allergies Obese Nausea and vomiting Family History Family History Father Hypertension Depression Heart disease Mother Depression Thyroid disorder Grandparent Depression Heart disease Social History Social History Smoking status: Current every day smoker Tobacco type: e-cigarettes/vaping Alcohol intake: current Alcohol use details: Socially Substance use: never Substance use type: does not use Lack of Transportation: No Lack of Food: Never True Current Housing: I Have Housing Concerned About Future Housing: No Difficulty Paying Gas/Electric Bills: No Difficulty Paying for Meds: No Currently Unemployed: No Education: High School Diploma/GED Difficulty w/ Childcare or Family Care: No Living arrangements: with family Occupation/Education: occupation Additional occupation/education comments: [employer] Gender identity (if verbalized by the patient): Female Sexual Orientation (if Verbalized by the Patient): Straight or Heterosexual Spiritual care concerns: No Agree to blood products: Yes Comments At the time of my signature, I reviewed and agree with the nursing past medical, surgical, social, and family history. There is no relevant family history pertinent to the patient complaint. Exam Narrative: General: Well-developed, morbidly obese, in no apparent distress Head: Normocephalic, atraumatic. Cardio: Regular rate and rhythm, s1 and s2 normal, no murmur appreciated. Resp: Clear to auscultation bilaterally, no rhonchi, rales, wheezing or rubs. Integumentary: [place], warm, and dry, red, raised, itchy, circular scaly plaque- like appearing rash to bilateral axilla, under bilateral breasts, abdomen, back, bikini area, and on her posterior neck. Course Course Emergency Course: Portions of this record may have been created with voice recognition software. Level of Care: Express Care Visit Vital Signs Vital signs: Vital Signs Temperature 36.6 C 01/07/25 14:53 Pulse Rate 92 01/07/25 14:53 Respiratory Rate 20 01/07/25 14:53 Blood Pressure 135/77 01/07/25 14:53 Pulse Oximetry 100 01/07/25 14:53 Oxygen Delivery Room Air 01/07/25 14:53 Temperature 36.6 C 01/07/25 14:53 Pulse Rate 92 01/07/25 14:53 Respiratory Rate 20 01/07/25 14:53 Blood Pressure 135/77 01/07/25 14:53 Pulse Oximetry 100 01/07/25 14:53 Oxygen Delivery Room Air 01/07/25 14:53 Vital signs reviewed MDM - Skin/Abscess/Foreign Bdy MDM Narrative Medical decision making narrative: At the time of visit patient is resting comfortably on the exam table. Patient appears to be nontoxic. complaints a rash that is spreading all over her body. She reports she initially had a rash to the left breast cleavage and started applying clotrimazole cream to that area 1 month ago. She was using clotrimazole cream at that time without relief. States the rash was very itchy and was painful after scratching. She was seen in the [facility] and diagnosed with tinea corpus and given ketoconazole cream to apply to the area on December 16, 2024. She reports now that the rash is spreading and there was no relief with the ketoconazole. Rash has changed in appearance and is now red, raised, and scaly appearing. Has been using the ketoconazole cream to the new areas without relief. She is 20 weeks . States she has saw her OBGYN and they do not think her rash is related to her . Cannot get in to see a insurance collector until February. Has not followed up with her primary care provider as of yet. Patient consents to having pictures taken in these pictures were sent collaborating provider Dr. Horvath. Case was discussed and believe that patient has a psoriasiform rash. Plan: Patient has psoriasiform rash- Will need to follow up with dermatology- will need biopsy. Will send in Rx for clobetasol ointment. Follow up with dermatology and PCP as discussed. Supportive measures were discussed with the patient and they voiced understanding discharge instructions and agrees to treatment plan. Return precautions reviewed Differential Diagnosis Differential diagnosis: Likely abscess of skin or subcutaneous tissue, viral exanthem, dermatophytosis, urticaria, herpes zoster, allergic reaction to drug, cellulitis, eczema, insect bites, impetigo, contact dermatitis and other (tinea corpus, psoriasiform rash) Discharge Plan Discharge Clinical Impression: Psoriasiform eruption Patient Disposition: Home Condition: Stable Instructions: Antibiotic Form, Psoriasis (ED) Additional Instructions: I suspect you have psoriasiform eruption. Stop using the antifungal cream. Apply clobetasol cream to the affected area as directed May take xjhs-cwi-drgpzer Benadryl as needed for itching May also taken rofe-pxm-yywuryt antihistamine such as Zyrtec or Claritin daily Follow up with your PCP in 5-7 days and insurance collector as discussed. Approved Medications for Patients Cold and Flu Symptoms --Tylenol (regular or extra Strength) Fever (call if over 101?)--Tylenol (regular or extra Strength) Nasal Drainage/Head Congestion--Chlor-Trimeton, Sudafed, Tavist,Tylenol Sinus Cough--Robitussin, Delsym, Mucinex Sore Throat--Chloraseptic, Cepacol lozenges Allergy Symptoms--Bendryl, Zyrtec, Zyrtec D, Claritin, Claritin D Nausea--Emetrol, Vitamin B6 Tablets, Henrietta, Henrietta Tea, Preggie Pops, B-Zac Suckers Constipation--Milk of Magnesia, Metamucil, Fiberall, Konsyl, Colace (Docusate Sodium) Diarrhea--Imodium, Kaopectate, Follow BRAT diet: bananas, rice, applesauce, tea/toast Heartburn--Maalox, Mylanta, TUMS, Prilosec OTC, Zantac, Tagment, Prevacid, Pepcid Hemorrhoids--Tucks Pads, Anusol, Preparation H, warm sitz baths Patient Language: Setswana Prescriptions: New clobetasol 0.05 % ointment 1 applic topical BID 14 Days Qty: 60 1RF No Action metformin 500 mg tablet extended release 24 hr PO (DME) Walking boot See Rx Instructions .Route .MEDSUPPLY Qty: 1 0RF Rx Instructions: As directed ergocalciferol (vitamin D2) 1,250 mcg (50,000 unit) capsule PO DAILY iron PO DAILY Follow-up/Referrals: Nicanor Hannah MD [Primary Care Provider, [facility]] Time of Disposition: 15:18 Quality NIHSS Nursing Documentation ED NIHSS nursing documentation: reviewed/agree
== END 2025-01-07 15:20 | disposition home or self-care (01) ==
PROVIDERS: Emergency Provider Nurse Practitioner Family; PCP Family Medicine
DX: O99.891 Other specified diseases and conditions complicating pregnancy (principal); R21 Rash and other nonspecific skin eruption; O99.332 Smoking (tobacco) complicating pregnancy, second trimester; F17.290 Nicotine dependence, other tobacco product, uncomplicated; O99.612 Diseases of the digestive system complicating pregnancy, second trimester; K21.9 Gastro-esophageal reflux disease without esophagitis; Z3A.20 20 weeks gestation of pregnancy
CPT/HCPCS: 99213; G0463

== ENCOUNTER 2025-01-22 18:32 | Observation (INO) | payer OTHER, SELFPAY ==
--- OUTSIDE RECORDS SUMMARY | 2025-01-22 18:41 | XMS_ITS | Clinical Summary ---
Author Organization [address] Address [address] [place] [address] Care Team Providers Care Animal Therapist Name Role Phone Dione Magaña MD Primary Care Provider + Allergies Active Allergy Reactions Criticality Noted Date [...] Noted Date Diagnosed Date Enlarged tonsils 07/16/2016 Estimated Date of Delivery Comme nts Yes 05/26/2025 Encounters Date Type Department Care Team Description 01/18/2025 12:45 PM CDT - 01/18/2025 1:28 PM CDT Emergency [facility] 1 [place], [place] [id number] Fall, initial encounter (Primary Dx) Discharge Disposition: Discharge to home or self care 01/07/2025 10:56 AM CDT - 01/07/2025 11:59 PM CDT Hospital Encounter [facility] [address] [place] [address] Encounter for screening, unspecified Discharge Disposition: Discharge to home or self [...] making you feel afraid or unsafe? 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 Gender Identity Not on file Sexual Orientation Not on file Obstetrics History Para Term AB IAB SAB Ectopic Multiple Livin g Live Births 1 Date Outcome GA Total Labor Labor/2nd/3rd Weight Sex Type Anes PTL Shanae A1 A5 Name Clin Current Last Filed Vital Signs Vital Sign Reading Time Taken Comments Blood Pressure 140/88 01/18/2025 10:16 AM CDT Pulse 95 01/18/2025 10:15 AM CDT Temperature 36.9 C (98.4 F) 01/18/2025 10:15 AM CDT Respiratory Rate 16 01/18/2025 10:15 AM CDT Oxygen Saturation 99% 01/18/2025 10:15 AM CDT Inhaled Oxygen Concentration - - Weight 107.5 kg (237 lb) 01/18/2025 10:15 AM CDT Height 162.6 cm (5' 4) 09/29/2024 10:40 AM CDT Body Mass Index 40.68 09/29/2024 10:40 AM CDT Plan of Treatment [...] Completed 12/26/2007, 01/29/2003 HPV Vaccines Completed 07/13/2014, 1107/2013, 12/31/2013 Procedures Procedure Name Priority Date/Time Associated Diagnosis Comments RBC%, QUANTITATIVE STAT 01/18/2025 1:26 PM CDT OB 14 WEEKS OR OVER Schedule Routine, Read Routine (OP Routine) 01/07/2025 12:50 PM CDT Encounter for screening, unspecified from Last 3 Months Results * RBC%, quantitative (01/18/2025 1:26 PM CDT) Hgb F, flow cytometry <0.05 0.00 - 0.10 % Comment: Interpretive data: RhIg administration is not needed for Rh-positive women with fetomaternal hemorrhage. Dosage of RhIG for the prevention of RhD alloimmunization following fetomaternal hemorrhage must be based on the individual clinical situation. The dosage recommendations provided here represent one published method and are voluntary. Dosage of RhIG, in number of 300 mcg vials, is based on the estimated volume of fetomaternal bleed, calculated by estimating the maternal blood volume and multiplying by the percent of cells in the maternal blood provided by the Kleihauer-Betke or flow cytometry test methods. The recommended dosage is the estimated volume of fetomaternal bleed, divided by 30 mL, rounded to the nearest integer, plus one. In the case of a negative screen for cells, the recommended dose is one vial. Fetomaternal bleed Recommended dose (vials) Negative screen 1 <15 ml 1 15-44 ml 2 45-74 ml 3 As an example, if the estimated maternal blood volume is 5,000 mL and the percent of cells is 1.5%, the dose would be calculated as: Estimated fetomaternal bleed = 5,000 ml X 0.015 = 75 mL Recommend dose = 75 mL / 30 mL = 2.5, round and add one = 4 vials These recommendations are published in the AABB Technical Manual, 19th ed, 2017, pp. 603-605. This test was developed and its performance characteristics determined by the [facility] Flow Cytometry laboratory. It has not been cleared or approved by the US Food and Drug Administration. This test is used for clinical purposes. It should not be regarded as investigational or for research. This laboratory is certified under the Clinical Laboratory Improvement Amendments (CLIA) as qualified to perform high complexity clinical laboratory testing. Current Interpretative data was last revised on 19. Testing performed by: [facility], [address] [place]., [address] Blood 01/18/2025 1:26 PM CDT 01/18/2025 4:15 PM CDT us [facility] BLOOD B[facility] TEST ORDERABLES Final Result MONTRELL ARIAS ([place]) 1 [facility] Department [place] [address] * US Ob 14 Weeks Or Over (01/07/2025 12:50 PM CDT) Anatomical Region Laterality Modality Abdomen N/A Ultrasound 2025 2:11 PM CDT Narrative 2025 2:24 PM CDT EXAM DESCRIPTION: US OB 14 WEEKS OR OVER REASON FOR STUDY: z36.9 TECHNIQUE: Complete transabdominal obstetric ultrasound was performed. COMPARISON: 09/29/2024 FINDINGS: number: single Presentation: Cephalic Gestational age by this ultrasound: 20 weeks and 4 days , EDC 05/23/2025 Clinical gestation: 20 weeks and 1 day , EDC 05/26/2025 Estimated weight: 369 g (0 pounds 13 ounces) , Percentile 75th Placenta location: Anterior without previa Placenta-previa: No Cervical length: Approximately 2.7 cm. Closed. heart rate: 154 bpm Amniotic fluid index: 15.9 cm S = Seen without gross abnormality A = Abnormal NC = Not clearly seen NS = Not seen on current exam PS = Previously seen anatomic survey: Intracranial anatomy: S Nose/lips: S Spine: S Four-chamber heart: NC Diaphragm: S Stomach: S Kidneys: NS Bladder: S 3-vessel cord: S cord insertion: S Upper extremities: S Lower extremities: S measurements: Biparietal diameter: 4.82 cm ( 20 weeks and 4 days ) Head circumference: 17.83 cm ( 20 weeks and 2 days ) Abdominal circumference: 14.82 cm ( 20 weeks and 1 day ) Femur length: 3.61 cm ( 21 weeks and 3 day ) Ratios: FL/AC: 24.4 (20-24). Borderline increased ratio which is nonspecific given estimated weight in the 75th percentile. HC/AC: 1.20 ( 1.09 - 1.26 ) IMPRESSION: 1. Single live intrauterine gestation estimated at 20 weeks and 4 days by this ultrasound. 2. Borderline shortening of the cervix measuring approximately 2.7 cm. Consider attention on follow-up as clinically appropriate. 3. Estimated weight of 369 g, 75th percentile. Additional measurements as above. 4. kidneys not clearly visualized. Consider attention on follow-up. 5. Cephalic presentation. Anterior placenta without placenta previa. THIS IS AN ELECTRONICALLY VERIFIED FINAL REPORT 2025 2:24 PM - Electronically signed by Abdiaziz Brown M.D. NS: NS Report ID: [id number] Reading Location: [id number] Procedure Note Abdiaziz Brown MD - 2025 EXAM DESCRIPTION: US OB 14 WEEKS OR OVER REASON FOR STUDY: z36.9 TECHNIQUE: Complete transabdominal obstetric ultrasound was performed. COMPARISON: 09/29/2024 FINDINGS: number: single Presentation: Cephalic Gestational age by this ultrasound: 20 weeks and 4 days , EDC05/23/2025 Clinical gestation: 20 weeks and 1 day , EDC 05/26/2025 Estimated weight: 369 g (0 pounds 13 ounces) , Percentile 75th Placenta location: Anterior without previa Placenta-previa: No Cervical length: Approximately 2.7 cm. Closed. heart rate: 154 bpm Amniotic fluid index: 15.9 cm S = Seen without gross abnormality A = Abnormal NC = Not clearly seen NS = Not seen on current exam PS = Previously seen anatomic survey: Intracranial anatomy: S Nose/lips: S Spine: S Four-chamber heart: NC Diaphragm: S Stomach: S Kidneys: NS Bladder: S 3-vessel cord: S cord insertion: S Upper extremities: S Lower extremities: S measurements: Biparietal diameter: 4.82 cm ( 20 weeks and 4 days ) Head circumference: 17.83 cm ( 20 weeks and 2 days ) Abdominal circumference: 14.82 cm ( 20 weeks and 1 day ) Femur length: 3.61 cm ( 21 weeks and 3 day ) Ratios: FL/AC: 24.4 (20-24). Borderline increased ratio which is nonspecificgiven estimated weight in the 75th percentile. HC/AC: 1.20 ( 1.09 - 1.26 ) IMPRESSION: 1. Single live intrauterine gestation estimated at 20 weeks and 4 daysby this ultrasound. 2. Borderline shortening of the cervix measuring approximately 2.7 cm. Consider attention on follow-up as clinically appropriate. 3. Estimated weight of 369 g, 75th percentile. Additional measurements as above. 4. kidneys not clearly visualized. Consider attention onfollow-up. 5. Cephalic presentation. Anterior placenta without placenta previa. THIS IS AN ELECTRONICALLY VERIFIED FINAL REPORT 2025 2:24 PM - Electronically signed by Abdiazizvalentina Brown M.D. NS: NS Report ID: [id number] Reading Location: [place] [address] Dione Magaña MD IMG OB US PROCEDURES Fin al Result from Last 3 Months Insurance AETNA SIG [id number] AETNA SIG [id number] Care Teams Animal Therapist Relationship Specialty Start Date End Date Dione Magaña MD [address] [facility] [address] [place] [id number] PCP - General Gynecology 01/18/25
--- OUTSIDE RECORDS SUMMARY | 2025-01-22 18:41 | XMS_ITS | Clinical Summary ---
Author Organization [facility] Address [address] [place] [address] Phone Care Team Providers Care Special Assets Officer Name Role Phone Isabell Kaur MD Primary Care Provider [phone] Medications escitalopram (LEXAPRO) 20 MG TabletIndication s:Major [...] Immunization (1 of 2 - Standard) 2018 Influenza Immunization (#1) 01/11/202511/2015, 03/02/2014, 05/20/2003, Additional history exists SARS-COV-2 Immunization ( season) 2025 Respiratory Syncytial Virus (RSV) Immunization (Adult) (1 [...] to complete this topic Insurance Care Teams Special Assets Officer Relationship Specialty Start Date End Date Isabell Kaur MD [address] [place] [address] PCP - General Pediatrics 02/05/18
--- OUTSIDE RECORDS SUMMARY | 2025-01-22 18:41 | XMS_ITS | Clinical Summary ---
Author Organization [facility] Address [address] [address] Care Team Providers Care Food Scientist Name Role Phone Unavailable Primary Care Provider Unavailabl e Source Comments [facility],non-owned Affiliates and Associated Physician Practices is amultiple site organization consisting of ambulatory clinics and hospital sitesin [place], [place], [place] and [place]. This disclosure is being madepursuant to the Care Everywhere program and may not contain all information available regarding this patient. Last updated 18.[facility] Allergies No known active allergies Medications * [...] of 3 - 19+ 3-dose series) 2021 DEPRESSION SCREENING 05/13/2024 COVID-19 VACCINE (1 - 2023-2 5 season) 2025 INFLUENZA VACCINE (#1) 2025 ZOSTER VACCINE (1 [...]
[2025-01-22 18:47] VITALS: BP 135/78; PULSE 96
--- NOTE | 2025-01-22 19:14 | OBADM ---
This patient, Fareed L Estrada, admitted to the OB room OB Post 116 for observation. Patient/family oriented to hospital policies and general routines including ID bracelet, bed and alarms, visiting hours, pain management, procedures, bathroom and other care routines, personal items, smoking policy, room service/diet, and visiting hours. Patient/Family are encouraged to report perceived risks to care and to ask questions if they do not understand what they are told or what they should do.
[2025-01-22 19:16] LABS: Add Urine Microscopic? NO; Appearance Urine Clear (Clear); Glucose Urine UA Negative (Negative); Leukocyte Esterase Ur Negative LEU/UL (Negative); Nitrate Urine Negative (Negative); Specific Grav Ur 1.011 (1.001-1.035)
--- NOTE | 2025-01-22 19:24 | PC.NURSE ---
01/22 - SVE closed/50/Posterior---Ts 145
--- NOTE | 2025-01-27 07:04 | P.PNOB_ITS ---
OB - Triage/Final Diagnosis Visit Information Reason for evaluation: threatened labor Comments/Additional reasons for admission: I have assessed the risk for this patient, Fareed Estrada, and determined that she would benefit from observation care. Evaluation Laboratory results: Laboratory Tests 01/22/25 19:03 Urine Color Yellow Urine Appearance Clear Urine pH 5.5 Ur Specific [place] 1.011 Urine Protein Negative Urine Glucose (UA) Negative Urine Ketones Negative Ur Blood (Man) Negative Urine Nitrate Negative Urine Bilirubin Negative Urine Urobilinogen 0.2 Leukocyte Esterase Rfl Negative
== END 2025-01-22 19:35 | disposition home or self-care (01) ==
PROVIDERS: Admitting Provider Obstetrics & Gynecology; PCP Family Medicine; Visit Provider Obstetrics & Gynecology
DX: O47.02 False labor before 37 completed weeks of gestation, second trimester (principal); Z3A.22 22 weeks gestation of pregnancy
CPT/HCPCS: 81003; G0378; G0379

== ENCOUNTER 2025-03-06 11:13 | Outpatient (RCR) | payer BC, SELFPAY ==
[2025-03-04 11:17] LABS: Hematocrit 35.7 % (37.0-47.0); Hemoglobin 12.0 g/dL (12.0-15.0)
[2025-03-04 11:39] LABS: Glucose 1 Hour PP 50gm Dose 112 mg/dL
[2025-03-04 12:08] LABS: Syphilis IgG/IgM Antibody Non-Reactive (Nonreactive)
[2025-03-04 12:19] LABS: HIV 1/2 Ab P24 Ag Result Negative (Negative)
[2025-03-06] MEDS: RHO(D) IMMUNE GLOBULIN 300 MCG/2 ML SYRINGE IM (09:11)
== END 2025-03-06 11:20 | disposition home or self-care (01) ==
LOC: ANHLAB 11:13
PROVIDERS: PCP Family Medicine; Visit Provider Obstetrics & Gynecology Gynecology
DX: Z11.4 Encounter for screening for human immunodeficiency virus [HIV] (principal); Z11.3 Encounter for screening for infections with a predominantly sexual mode of transmission; Z29.13 Encounter for prophylactic Rho(D) immune globulin; O36.0190 Maternal care for anti-D [Rh] antibodies, unspecified trimester, not applicable or unspecified; Z3A.00 Weeks of gestation of pregnancy not specified
CPT/HCPCS: 36415; 82306; 82947; 85014; 85018; 85461; 86593; 86703; 86850; 86900; 86901; 90384; 96372; G0432; J2790

== ENCOUNTER 2025-03-08 10:55 | Outpatient (CLI) | payer BC, SELFPAY ==
--- NOTE | ~2025-03-08 | US_ITS ---
EXAMINATION: US OB follow up DATE: 03/08/2025 11:20 INDICATION: Expected size greater than expected for estimated gestational age during early third trimester of TECHNIQUE: Real-time ultrasound of the pelvis was performed. The interpreting radiologist was not present for the study. COMPARISON: 10/19/2024 FINDINGS: There is a single living fetus in vertex presentation. The placenta is anterior and not low-lying. heart rate is 155 beats per minute (bpm). The amniotic fluid index is 12.5 cm, which is normal. (5th%-95%: 9.4-22.8 cm at 28 weeks estimated gestational age). The following biometric data were obtained: BPD: 7.7 cm -> 30 weeks 6 days Head circumference: 27.9 cm -> 30 weeks 4 days Abdominal circumference: 24.8 cm -> 29 weeks 0 days Femur length: 5.5 cm -> 28 weeks 6 days Femur length to biparietal diameter ratio is at the lower limits of normal. These measurements are otherwise concordant. Head circumference to abdominal circumference ratio: 1.13 (normal range 0.98-1.19). Estimated weight: 1358 g (+/-) 204 g or 3 lbs. 0 oz. (+/-) 7 oz. IMPRESSION: 1. Single living fetus in vertex presentation with heart rate of 155 bpm. 2. Normal amniotic fluid index of 12.5 cm. 3. Estimated weight is 57th percentile by Hadlock criteria when 05/26/2025 is used as the estimated date of delivery (ARA). Please correlate with clinical information or earlier ultrasounds for most accurate ARA. Reviewed, dictated and finalized at location A. IMPRESSION: 1. Single living fetus in vertex presentation with heart rate of 155 bpm. 2. Normal amniotic fluid index of 12.5 cm. 3. Estimated weight is 57th percentile by Hadlock criteria when 05/26/2025 is used as the estimated date of delivery (ARA). Please correlate with clinica l information or earlier ultrasounds for most accurate ARA.
== END 2025-03-08 10:56 | disposition home or self-care (01) ==
LOC: MICIMG 10:56
PROVIDERS: PCP Obstetrics & Gynecology Gynecology; Visit Provider Obstetrics & Gynecology Gynecology
DX: O36.63X0 Maternal care for excessive fetal growth, third trimester, not applicable or unspecified (principal); Z3A.00 Weeks of gestation of pregnancy not specified
CPT/HCPCS: 76816

== ENCOUNTER 2025-04-06 10:10 | Emergency (ER) | payer BC, SELFPAY ==
[2025-04-06] VITALS (7 sets, daily range): BP systolic 107–132; BP diastolic 68–87; PULSE 98–118; RESP 18–22; TEMP 36.7; O2SAT 96–99
--- NOTE | ~2025-04-06 | US_ITS ---
EXAMINATION:US venous doppler LE BI INDICATION:Edema. Shortness of breath. TECHNIQUE: Multiple grayscale, color flow and Doppler images of the right and left lower extremity deep venous systems were obtained and reviewed. COMPARISON:No prior studies for comparison. FINDINGS: The common femoral, superficial femoral and popliteal veins demonstrate normal respiratory variation, augmentation and compressibility. Color flow is also seen within the posterior tibial, peroneal, greater saphenous and profunda veins. IMPRESSION: 1: No lower extremity deep venous thrombosis. Reviewed, dictated and finalized at location O. ICAL NURSE
--- NOTE | ~2025-04-06 | CT_ITS ---
CTA CHEST CLINICAL HISTORY: cp, sob, elevated dimer, . COMPARISON: None TECHNIQUE: Helical CTA performed from thoracic inlet to upper abdomen IV contrast information not listed in PACS Coronal, sagittal reformats. Multiplanar MIPS CT images acquired with automatic exposure control for dose reduction DLP: 684 mGy-cm FINDINGS: Pulmonary arteries: No PE. Thoracic Aorta: No dissection or aneurysm. Heart/pericardium: Unremarkable. RV/LV ratio: Normal. Lungs/Pleura: Clear. Tracheobronchial tree: Patent. Nodes: No enlarged nodes. Bones: No acute bony abnormality. Soft tissues: Remnant thymic tissue. Visualized upper abdomen: Hepatomegaly, with steatosis. IMPRESSION: 1. No PE or other acute cardiopulmonary findings. Reviewed, dictated and finalized at location R. TY GENERAL COUNSEL
--- NOTE | 2025-04-06 10:20 | ECG_ITS ---
Test Date: 2025-04-06 10:23:03 Measurements Intervals [place] Rate: 106 P: 54 SD: 148 QRS: 29 QRSD: 89 T: 22 QT: 315 QTc: 420 Interpretive Statements SINUS TACHYCARDIA OTHERWISE NORMAL ECG No previous ECG available for comparison Electronically Signed On 04-06-2025 17:27:31 SCOOPER by Tacho Ortiz M.D.
[2025-04-06 10:34] LABS: Hematocrit 37.0 % (37.0-47.0); Hemoglobin 12.5 g/dL (12.0-15.0); Immature Granulocyte Percent A 2.6 % (0-0.5); Lymphocytes Absolute Auto 1.41 K/mm3 (0.9-3.2); Mean Corpuscular HGB Conc 33.8 g/dl (32-36); Mean Corpuscular Hemoglobin 30.3 pg (26-34); Mean Corpuscular Volume 89.8 fl (80-100); Nucleated Red Blood Cells Absolute Auto 0.000 K/mm3 (0.0-0.012); Nucleated Red Blood Cells Perc 0.0 % (0.0-0.2); Platelet Count Result 226 k/mm3 (150-375); Red Blood Count 4.12 M/mm3 (4.2-5.4); White Blood Count 8.6 K/mm3 (4.5-10.0)
[2025-04-06 10:45] LABS: INR 1.0; Partial Thromboplastin Time 25.9 Seconds (22.3-36.8); Prothrombin Time 12.8 Seconds (11.1-14.7)
[2025-04-06] MEDS: SODIUM CHLORIDE 0.9% IV 1,000 ML 999 ML IV CONT (10:47)
[2025-04-06 10:48] LABS: Alanine Aminotransferase 51 U/L (6-35); Albumin Level 3.9 g/dL (3.5-5.1); Alkaline Phosphatase 86 U/L (38-126); Anion Gap 7 mmol/L (4-12); Aspartate Amino Transferase 27 U/L (14-36); Bilirubin,Total 0.2 mg/dL (0.2-1.3); Blood Urea Nitrogen 6 mg/dL (7-17); Calcium 9.5 mg/dL (8.4-10.2); Carbon Dioxide 19 mmol/L (22-30); Chloride 106 mmol/L (98-107); Estimated CRCL calculation 202 ml/min; Estimated Glomerular Filt Rate > 60; Glucose 104 mg/dL (65-110); Lipase 59 U/L (23-300); Potassium 3.8 mmol/L (3.4-5.0); Sodium 132 mmol/L (137-145); Total Protein 7.2 g/dL (6.3-8.2)
--- NOTE | 2025-04-06 10:53 | ED_ITS ---
HPI - Arrhythmia/Palpitations General Chief Complaint: Arrhythmia/Palpitations Stated Complaint: palpitations, cp for couple weeks. 33 weeks preg Time Seen by Provider: 04/06/25 10:22 Source: patient Mode of arrival: ambulatory Limitations: no limitations History of Present Illness HPI narrative: This is a 25-year-old female that presents to the emergency department for chest pain. Ongoing intermittently over the last week. Reports the pain is sharp and radiates to her back. Reports some associated shortness of breath. She is currently 33 weeks tomorrow. Does report mild lower extremity edema. Reports a cough. Denies fevers. Related Data Home Medications ?Medication ?Instructions ?Recorded ?Confirmed ?Last Taken ?Type metformin 500 mg tablet,extended mg PO 11/02/24 Unkno wn History release 24 hr PO DAILY 12/16/24 Unknown H istory ergocalciferol (vitamin D2) 1,250 12/16/24 Unknown H istory mcg (50,000 unit) capsule iron PO DAILY 12/16/24 Unknown H istory Allergies Allergy/AdvReac Type Severity Reaction Status Date / Time cephalexin (From Keflex) AdvReac Mild Hives Verified 01/07/25 15:03 Review of Systems 2 Review of Systems: All systems reviewed & are unremarkable except as noted in HPI and below PMFSH Past Medical History Medical History BMI 39.0-39.9,adult Elevated TSH Bilateral foot pain BMI 37.0-37.9, adult Screening for diabetes mellitus GERD (gastroesophageal reflux disease) Generalized anxiety disorder with panic attacks Chest tightness BMI 35.0-35.9,adult Vapes nicotine containing substance BMI 32.0-32.9,adult Seasonal allergies Encounter to establish care Migraine Anxiety Allergies Obese Nausea and vomiting Family History Family History Father Hypertension Depression Heart disease Mother Depression Thyroid disorder Grandparent Depression Heart disease Social History Social History Smoking status: Current every day smoker Tobacco type: e-cigarettes/vaping Alcohol intake: current Alcohol use details: Socially Substance use: never Substance use type: does not use Lack of Transportation: No Lack of Food: Never True Current Housing: I Have Housing Concerned About Future Housing: No Difficulty Paying Gas/Electric Bills: No Difficulty Paying for Meds: No Currently Unemployed: No Education: High School Diploma/GED Difficulty w/ Childcare or Family Care: No Living arrangements: with family Occupation/Education: occupation Additional occupation/education comments: [employer] Gender identity (if verbalized by the patient): Female Sexual Orientation (if Verbalized by the Patient): Straight or Heterosexual Spiritual care concerns: No Agree to blood products: Yes Exam 2 Narrative: GENERAL: Well-appearing, well-nourished, and in no acute distress. HEAD: Normocephalic, atraumatic. EYES: EOMI. ENT: Nares clear, no rhinorrhea or epistaxis. Mucous membranes moist. Oropharynx without tonsillar hypertrophy exudate or other lesions. CHEST: Clear to auscultation. No respiratory distress. No wheezes rales or rhonchi HEART: Regular rate and rhythm. No murmur heard. Normal peripheral pulses. ABDOMEN: Gravid EXTREMITIES: Normal range of motion. Mild non-pitting edema bilaterally. SKIN: Warm, dry, no rash. NEURO: No focal deficits. Alert and oriented x3. PSYCH: Normal mood and affect Course Consultations Consultation #1: Spoke with Dr. Magaña about patient and workup. Follow up in clinic. Tylenol as needed for pain Date: 04/06/25 Vital Signs Vital signs: Vital Signs Temperature 98.1 F 04/06/25 10:21 Pulse Rate 118 H 04/06/25 10:21 Respiratory Rate 18 04/06/25 10:21 Blood Pressure 132/87 04/06/25 10:21 Pulse Oximetry 98 04/06/25 10:21 Oxygen Delivery Room Air 04/06/25 10:21 Temperature 98.1 F 04/06/25 10:21 Pulse Rate 99 04/06/25 14:15 Respiratory Rate 21 H 04/06/25 14:15 Blood Pressure 111/68 04/06/25 14:15 Pulse Oximetry 97 04/06/25 14:15 Oxygen Delivery Room Air 04/06/25 10:21 MDM - Arrhythmia/Palpitations MDM Narrative Medical decision making narrative: Patient presents emergency department for chest pain, shortness of breath. Currently about 33 weeks . Tachycardic upon arrival, this normalized with IV fluids. Cbc and metabolic panel without concerning findings. Influenza, RSV, COVID screens are negative. D-dimer elevated. Bilateral venous Doppler lower extremity without evidence of DVT. CTA chest PE obtained for further evaluation. No PE or acute cardiopulmonary abnormality. Patient updated on her workup and agrees with plan of care. She is to follow up with her OB. She was given warnings to return to the ER Differential Diagnosis Differential diagnosis: Likely palpitations, anxiety, sinus tachycardia and other (PE, pneumonia, COVID) Lab Data Attestation: I reviewed the patient's lab results. 04/06/25 10:25 04/06/25 10:25 Labs: Lab Results 04/06/25 04/06/25 04/06/25 Range/Units 10:25 11:08 13:38 WBC 8.6 (4.5-10.0) K/mm3 RBC 4.12 L (4.2-5.4) M/mm3 Hgb 12.5 (12.0-15.0) g/dL Hct 37.0 (37.0-47.0) % MCV 89.8 (80-100) fl MCH 30.3 (26-34) pg MCHC 33.8 (32-36) g/dl RDW 13.6 (11.5-14.5) % Plt Count 226 (150-375) k/mm3 MPV 9.3 (7.4-10.4) fl Immature Gran % (Auto) 2.6 H (0-0.5) % Neut % (Auto) 73.3 H (45.5-73.1) % Lymph % (Auto) 16.4 L (18.3-44.2) % [place] % (Auto) 5.9 (2.6-8.5) % Eos % (Auto) 1.5 (0-4.4) % Baso % (Auto) 0.3 (0.2-1.2) % Lymph # (Auto) 1.41 (0.9-3.2) K/mm3 [place] # (Auto) 0.5 (0.1-0.6) K/mm3 Eos # (Auto) 0.1 (0-0.3) K/mm3 Baso # (Auto) 0.0 (0.0-0.1) K/mm3 Abs Immat Gran (auto) 0.22 H (0.00-0.031) K/mm3 Absolute Neuts (auto) 6.3 (1.3-6.7) K/mm3 Absolute Nucleated RBC 0.000 (0.0-0.012) K/mm3 Nucleated RBC % 0.0 (0.0-0.2) % PT 12.8 (11.1-14.7) Seconds INR 1.0 APTT 25.9 (22.3-36.8) Seconds D-Dimer 0.70 H (<0.48) ug/mL Sodium 132 L (137-145) mmol/L Potassium 3.8 (3.4-5.0) mmol/L Chloride 106 (98-107) mmol/L Carbon Dioxide 19 L (22-30) mmol/L Anion Gap 7 (4-12) mmol/L BUN 6 L D (7-17) mg/dL Creatinine 0.43 L (0.7-1.0) mg/dL Estim Creat Clear Calc 202 ml/min Estimated GFR > 60 (59 - ) Glucose 104 (65-110) mg/dL Calcium 9.5 (8.4-10.2) mg/dL Total Bilirubin 0.2 (0.2-1.3) mg/dL AST 27 (14-36) U/L ALT 51 H (6-35) U/L Alkaline Phosphatase 86 (38-126) U/L Troponin I < 0.012 < 0.012 (0.000-0.034) ng/mL Total Protein 7.2 (6.3-8.2) g/dL Albumin 3.9 (3.5-5.1) g/dL Lipase 59 (23-300) U/L Influenza A (RT-PCR) Negative (Negative) Influenza B (RT-PCR) Negative (Negative) RSV (RT-PCR) Negative (Negative) SARS-CoV-2 RNA (RT-PCR) Negative (Negative) Imaging Data Radiologist's impression: ITS Impressions Venous Doppler Study 04/06/25 12:01 IMPRESSION: 1: No lower extremity deep venous thrombosis. Chest CTA 04/06/25 13:02 IMPRESSION: 1. No PE or other acute cardiopulmonary findings. Critical Care Time Critical Care Time Critical Care Time: No Discharge Plan Discharge Clinical Impression: Chest pain Qualifiers: Chest pain type: unspecified Qualified Code(s): R07.9 - Chest pain, unspecified Patient Disposition: Home Condition: Stable Instructions: Chest Pain (ED) Additional Instructions: Return to the ER if you experience fever, worsening chest pain, shortness of breath, abdominal pain with nausea and vomiting, you are unable to keep down liquids or solids, pelvic cramping, vaginal bleeding, or any other symptoms that are concerning to you Tylenol as needed for pain Follow up with your OB Patient Language: Venezuelan Prescriptions: No Action clobetasol 0.05 % ointment 1 applic topical BID 14 Days Qty: 60 1RF metformin 500 mg tablet extended release 24 hr PO ergocalciferol (vitamin D2) 1,250 mcg (50,000 unit) capsule PO DAILY iron PO DAILY Follow-up/Referrals: Dione Magaña MD [Primary Care Provider, FOOD BAGGING MACHINE OPERATOR]
[2025-04-06 10:55] LABS: Troponin I < 0.012 ng/mL (0.000-0.034)
--- OUTSIDE RECORDS SUMMARY | 2025-04-06 11:22 | XMS_ITS | Clinical Summary ---
Author Organization [address] Address [address] [place] [id number] Care Team Providers Care Line Prep Cook Name Role Phone Nicanor Hannah MD Primary Care Provider [phone] Allergies Active Allergy Reactions Criticality Noted Date [...] Encounters Date Type Department Care Team Description 02/05/2025 9:51 AM CDT - 02/05/2025 11:59 PM CDT Hospital Encounter [facility] [address] [place] [address] Encounter for screening for cervical length Discharge Disposition: Discharge to home or self care 01/26/2025 12:23 PM CDT - 01/26/2025 11:59 PM CDT Hospital Encounter [facility] [address] [place] [id number] Encounter for screening for cervical length Discharge Disposition: Discharge to home or self care 01/18/2025 12:45 PM CDT - 01/18/2025 1:28 PM CDT Emergency [facility] [address] [place] [address] Fall, initial encounter (Primary Dx) Discharge Disposition: Discharge to home or self care 01/07/2025 10:56 AM CDT - 01/07/2025 11:59 PM CDT Hospital Encounter [facility] [address] [place] [address] Encounter for screening, unspecified Discharge Disposition: Discharge [...] on file 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 Gender Identity Not on file Sexual Orientation [...] Completed 12/26/2007, 01/29/2003 HPV Vaccines Completed 07/13/2014, 11/07/2013, 12/31/2013 Procedures Procedure Name Priority Date/Time Associated Diagnosis Comments US OB LIMITED Schedule Routine, Read Routine (OP Routine) 02/05/2025 10:46 AM CDT Encounter for screening for cervical length US OB LIMITED W ENDOVAG Schedule Routine, Read Routine (OP Routine) 01/26/2025 2:07 PM CDT Encounter for screening for cervical length RBC%, QUANTITATIVE STAT 01/18/2025 1:26 PM CDT US OB 14 WEEKS OR OVER Schedule Routine, Read Routine (OP Routine) 01/07/2025 12:50 PM CDT Encounter for screening, unspecified from Last 3 Months Results * US Ob Limited (02/05/2025 10:46 AM CDT) Anatomical Region Laterality Modality Abdomen N/A Ultrasound 02/08/2025 9:47 AM CDT Narrative 02/08/2025 9:52 AM CDT EXAM DESCRIPTION: US OB LIMITED REASON FOR STUDY: For follow-up of anatomy for assessment of kidneys. TECHNIQUE: Limited transabdominal grayscale ultrasound for obstetrical evaluation. COMPARISON: 01/26/2025. FINDINGS: A total of 22 images provided for retrospective review. The clinical age is 24 weeks 2 days with an ARA with an ARA 05/26/2025. The kidneys are seen with no demonstrated abnormality. Nose and lips are shown without abnormality. There are images labeled right ventricular and left ventricular outflow tract, these are not optimal but there are no demonstrated abnormalities. IMPRESSION: Kidneys demonstrated with no abnormality seen. THIS IS AN ELECTRONICALLY VERIFIED FINAL REPORT 02/08/2025 9:52 AM - Electronically signed by Phillip Lorenzo M.D. CH: Report ID: [id number] Reading Location: [id number] Procedure Note Pihllip Lorenzo MD - 02/08/2025 EXAM DESCRIPTION: US OB LIMITED REASON FOR STUDY: For follow-up of anatomy for assessment of kidneys. TECHNIQUE: Limited transabdominal grayscale ultrasound for obstetrical evaluation. COMPARISON: 01/26/2025. FINDINGS: A total of 22 images provided for retrospective review. The clinical age is 24 weeks 2 days with an ARA with an ARA 05/26/2025. The kidneys are seen with no demonstrated abnormality. Nose and lips are shown without abnormality. There are images labeledright ventricular and left ventricular outflow tract, these are not optimal but there are no demonstrated abnormalities. IMPRESSION: Kidneys demonstrated with no abnormality seen. THIS IS AN ELECTRONICALLY VERIFIED FINAL REPORT 02/08/2025 9:52 AM - Electronically signed by Phillip Lorenzo M.D. CH: Report ID: [id number] Reading Location: [id number] us Dione Magaña MD IMG OB US PROCEDURES Fin al Result * US Ob Limited W Endovag (01/26/2025 2:07 PM CDT) Anatomical Region Laterality Modality Body N/A Ultrasound 01/27/2025 3:55 PM CDT Impressions 01/27/2025 3:55 PM CDT Borderline shortened cervical length noted as above. Electronically signed by: Iraida Prather M.D. Narrative 01/27/2025 3:55 PM CDT EXAMINATION: US OB LIMITED W ENDOVAG HISTORY: Z36.86 ORDER DATE: 01/26/2025 1:00 PM COMPARISON: OB 01/07/2025 FINDINGS: Targeted ultrasound attention to the uterine cervix was obtained. Cervical length was measured at 2.6 cm. Cervical trace length is 3.3 cm which appears more accurate. Procedure Note Iraida Prather MD - 01/27/2025 EXAMINATION: US OB LIMITED W ENDOVAG HISTORY: Z36.86 ORDER DATE: 01/26/2025 1:00 PM COMPARISON: OB 01/07/2025 FINDINGS: Targeted ultrasound attention to the uterine cervix was obtained. Cervical length was measured at 2.6 cm. Cervical trace length is 3.3 cm which appears more accurate. IMPRESSION: Borderline shortened cervical length noted as above. Electronically signed by: Iraida Prather M.D. Dione Magaña MD IMG US PROCEDURES Final Result * RBC%, quantitative (01/18/2025 1:26 PM CDT) [...] and its performance characteristics determined by the [facility] Flow Cytometry laboratory. It has not been [...] last revised on 19. Testing performed by: [facility], [address] [place] [address] Blood 01/18/2025 1:26 PM CDT 01/18/2025 4:15 PM CDT us [facility] BLOOD BANK TEST ORDERABLES Final Result MONTRELL ARIAS (SHANIA) [address] [facility] Department of Laboratories [place], [place] [id number] * US Ob 14 Weeks Or Over [...] Abdiaziz Brown M.D. NS: NS Report ID: [id number] Reading Location: [id number] Procedure Note Abdiaziz Brown MD - 2025 [...] Abdiaziz Brown M.D. NS: NS Report ID: [id number] Reading Location: [place] [id number] us Dione Magaña MD IMG OB US PROCEDURES Fin al Result from Last 3 Months Insurance AETNA SIG [id number] AETNA SIG [id number] A[employer] SIG [id number] Care Teams Line Prep Cook Relationship Specialty Start Date End Date Nicanor Hannah MD [address] [id number] PCP - General Family Medicine 01/25/25
--- OUTSIDE RECORDS SUMMARY | 2025-04-06 11:22 | XMS_ITS | Clinical Summary ---
Author Organization [facility] Address [address] [place] [address] Phone Care Team Providers Care Business Analytics Faculty Member Name Role Phone Isabell Kaur MD Primary Care Provider [phone] Medications escitalopram (LEXAPRO) 20 MG TabletIndication s:Major [...] 05/20/2003, Additional history exists SARS-COV-2 Immunization ( - season) 2025 Respiratory Syncytial Virus (RSV) Immunization [...] 07/22/2003, 2002, Additional history exists Varicella Immunization Completed 12/26/2007, 2002 DTaP/Tdap/Td Immunization Discontinued 2013, 12/26/2007, 07/22/2003, Additional history exists TdaP Immunization Completed 12/31/2013 Human Papillomavirus (HPV) Immunization Completed 07/13/2014, 03/15/2014, 12/31/2013 Meningococcal Immunization (ACWY) Completed 01/28/2018, 12/31/2013 Rotavirus Immunization Aged Out No lo nger eligible based on patient's age to complete this topic Insurance Care Teams Business Analytics Faculty Member Relationship Specialty Start Date End Date Isabell Kaur MD [id number] [place] [address] PCP - General Pediatrics 02/05/18
--- OUTSIDE RECORDS SUMMARY | 2025-04-06 11:22 | XMS_ITS | Clinical Summary ---
Author Organization [facility] Address [address] [place] [address] Care Team Providers Care Hob Grinder Name Role Phone Unavailable Primary Care Provider Unavailabl e Source Comments [facility],non-owned Affiliates and Associated Physician Practices is amultiple site organization consisting of ambulatory clinics and hospital sitesin [place], [place], [place] and [place]. This disclosure is being madepursuant to the Care Everywhere program and may not contain all information available regarding this patient. Last updated 18.[facility] Allergies No known active allergies Medications * [...] of 3 - 19+ 3-dose series) 2021 PAP SMEAR 2023 DEPRESSION SCREENING 05/13/2024 COVID-19 VACCINE (1 - 2024-2 6 season) 2025 INFLUENZA VACCINE (#1) 2025 ZOSTER [...]
[2025-04-06 12:00] LABS: Influenza A QL RT-PCR Negative (Negative); Influenza B QL RT-PCR Negative (Negative); RSV RNA, RT-PCR Negative (Negative); SARS-CoV-2 RNA PCR Negative (Negative)
--- NOTE | 2025-04-06 12:02 | PC.NURSE ---
RN notified Dr. Magaña of NST. No new orders at this time.
[2025-04-06] MEDS: ACETAMINOPHEN 500 MG TABLET 1000 MG PO (13:39)
[2025-04-06 14:13] LABS: Troponin I < 0.012 ng/mL (0.000-0.034)
== END 2025-04-06 14:36 | disposition home or self-care (01) ==
PROVIDERS: Emergency Medicine; Emergency Provider Physician Assistant; PCP Obstetrics & Gynecology Gynecology
DX: R07.9 Chest pain, unspecified (principal); R00.0 Tachycardia, unspecified; K21.9 Gastro-esophageal reflux disease without esophagitis; F41.9 Anxiety disorder, unspecified; Z20.822 Contact with and (suspected) exposure to COVID-19
CPT/HCPCS: 36415; 71275; 80053; 83690; 84484; 85025; 85380; 85610; 85730; 87637; 93005; 93970; 96360; 99284; A9270; J7030; Q9967

== ENCOUNTER 2025-04-09 11:59 | Outpatient (CLI) | payer BC, SELFPAY ==
--- OUTSIDE RECORDS SUMMARY | 2025-04-09 12:06 | XMS_ITS | Clinical Summary ---
Author Organization [facility] Address [address] [place] [address] Phone Care Team Providers Care Lofter Name Role Phone Isabell Kaur MD Primary Care Provider [phone] Medications escitalopram (LEXAPRO) 20 MG TabletIndication s:Major [...] to complete this topic Insurance Care Teams Lofter Relationship Specialty Start Date End Date Isabell Kaur MD [address] [place] [address] PCP - General Pediatrics 02/05/18
--- OUTSIDE RECORDS SUMMARY | 2025-04-09 12:06 | XMS_ITS | Clinical Summary ---
Author Organization [email or web address] Address [address] [place] [address] Care Team Providers Care Topstitcher Zigzag Name Role Phone Unavailable Primary Care Provider Unavailabl e Source Comments [email or web address],non-owned Affiliates and Associated Physician Practices is amultiple site organization consisting of ambulatory clinics and hospital sitesin [place], [place], [place] and [place]. This disclosure is being madepursuant to the Care Everywhere program and may not contain all information available regarding this patient. Last updated 18.[email or web address] Allergies No known active allergies Medications * [...]
[2025-04-09 12:30] VITALS: BP 109/70; PULSE 102
[2025-04-09 12:31] VITALS: BP 110/70; PULSE 105
[2025-04-09 13:04] LABS: Add Urine Microscopic? NO; Appearance Urine Clear (Clear); Glucose Urine UA Trace mg/dL (Negative); Leukocyte Esterase Ur Negative LEU/UL (Negative); Nitrate Urine Negative (Negative); Specific Grav Ur 1.021 (1.001-1.035)
[2025-04-09 13:43] LABS: OBXCEM ROM Plus Negative (Negative)
== END 2025-04-09 13:40 | disposition home or self-care (01) ==
LOC: ANHOBOP 12:04 → ANHOBPP 12:08
PROVIDERS: Obstetrics & Gynecology; PCP Family Medicine; Visit Provider Obstetrics & Gynecology Gynecology
DX: O42.90 Premature rupture of membranes, unspecified as to length of time between rupture and onset of labor, unspecified weeks of gestation (principal); Z3A.00 Weeks of gestation of pregnancy not specified
CPT/HCPCS: 59025; 81003; 84112

== ENCOUNTER 2025-04-27 15:44 | Emergency (ER) | payer BC, SELFPAY ==
[2025-04-27 15:50] VITALS: BP 120/81; PULSE 100; RESP 20; TEMP 36.5; O2SAT 99
--- NOTE | 2025-04-27 16:21 | ED_ITS ---
HPI - URI/Sore Throat General Chief Complaint: Upper Respiratory Infection Stated Complaint: Diarrhea/Sore Throat Time Seen by Provider: 04/27/25 16:20 Source: patient, RN notes reviewed and old records reviewed Mode of arrival: ambulatory Limitations: no limitations History of Present Illness HPI Narrative: 25 year old female who presents to [facility] care with complaints of sore throat and some incidence of vomiting and diarrhea that started on 04/24/2025 with vomiting stopping the following day with some incidence of diarrhea continuing. Patient reports that since yesterday she has had a headache and also has sore throat. Patient is 36 weeks and rates her throat pain as 5/10 and states that significant other tested positive for strep today. Patient reports that she has been taking Tylenol for her symptoms. MD elicited complaint: sore throat and other (headache and diarrhea) Pertinent past history: other (strep throat) Onset (ago): day(s) (3 days diarrhea, day 2 of sore throat) Pain scale (0-10): 5 Able to tolerate fluids by mouth: Yes Context: other (36 weeks positive for exposure to strep) Treatments prior to arrival: acetaminophen Related Data Home Medications ?Medication ?Instructions ?Recorded ?Confirmed ?Last Taken ?Type metformin 500 mg tablet,extended mg PO 11/02/24 Unkno wn History release 24 hr PO DAILY 12/16/24 Unknown H istory ergocalciferol (vitamin D2) 1,250 12/16/24 Unknown H istory mcg (50,000 unit) capsule iron PO DAILY 12/16/24 Unknown H istory Allergies Allergy/AdvReac Type Severity Reaction Status Date / Time cephalexin (From Keflex) AdvReac Mild Hives Verified 04/27/25 16:09 Review of Systems Review of Systems: CONSTITUTIONAL: Denies fever, chills, or sweats. EYES: Denies visual changes, redness, or discharge. ENT: Denies rhinorrhea, congestion, +sore throat, no otalgia. CARDIOVASCULAR: Denies chest pain, palpitations, or edema. RESPIRATORY: Denies cough or dyspnea. GASTROINTESTINAL: Denies abdominal pain, nausea, episodes of vomiting resolved at present, + continued diarrhea. GENITOURINARY: Denies dysuria or hematuria. SKIN: Denies rash or itching. MUSCULOSKELETAL: Denies back pain, joint pain, or myalgia. NEUROLOGIC: reports headache,no numbness, or weakness. PSYCHIATRIC: Denies anxiety or depression. All systems reviewed & are unremarkable except as noted in HPI and below PMFSH Past Medical History Medical History Anemia affecting first History of PCOS BMI 39.0-39.9,adult Elevated TSH Bilateral foot pain BMI 37.0-37.9, adult Screening for diabetes mellitus GERD (gastroesophageal reflux disease) Generalized anxiety disorder with panic attacks Chest tightness BMI 35.0-35.9,adult Vapes nicotine containing substance BMI 32.0-32.9,adult Seasonal allergies Encounter to establish care Migraine Anxiety Allergies Obese Nausea and vomiting Family History Family History Father Hypertension Depression Heart disease Mother Depression Thyroid disorder Grandparent Depression Heart disease Social History Social History (Updated 04/29/25 @ 16:41 by Radha Carpenter APRN) Smoking status: Former smoker Tobacco type: e-cigarettes/vaping Alcohol intake: former Alcohol use details: presently Substance use: never Substance use type: does not use Lack of Transportation: No Lack of Food: Never True Current Housing: I Have Housing Concerned About Future Housing: No Difficulty Paying Gas/Electric Bills: No Difficulty Paying for Meds: No Currently Unemployed: No Education: High School Diploma/GED Difficulty w/ Childcare or Family Care: No Living arrangements: with family Occupation/Education: occupation Additional occupation/education comments: [employer] Gender identity (if verbalized by the patient): Female Sexual Orientation (if Verbalized by the Patient): Straight or Heterosexual Spiritual care concerns: No Agree to blood products: Yes Comments At time of signature, agree with nursing past medical, surgical, social and family history. There is no relevant family history pertinent to the presenting complaint Exam Narrative: GENERAL: Well-appearing, well-nourished, and in no acute distress.Patient is 36 weeks HEAD: Normocephalic, atraumatic. EYES: PERRLA and EOMI. ENT: Nares clear, no rhinorrhea or epistaxis. Mucous membranes moist.TM's normal with good light reflex tonsils red and swollen NECK: Supple.lymphadenopathy CHEST: Clear to auscultation. No respiratory distress.SAO2 99% on room air HEART: Regular rate and rhythm. No murmur heard. Normal peripheral pulses. ABDOMEN: Soft, nontender, nondistended, normal active bowel sounds.episodes of diarrhea since 04/24/2025 EXTREMITIES: Normal range of motion. No edema. SKIN: Warm, dry, no rash.diarrhea NEURO: No focal deficits. Alert and oriented x3.Reports headache Course Course Level of Care: Express Care Visit Vital Signs Vital signs: Vital Signs Temperature 36.5 C 04/27/25 15:50 Pulse Rate 100 04/27/25 15:50 Respiratory Rate 20 04/27/25 15:50 Blood Pressure 120/81 04/27/25 15:50 Pulse Oximetry 99 04/27/25 15:50 Oxygen Delivery Room Air 04/27/25 15:50 Temperature 36.5 C 04/27/25 15:50 Pulse Rate 100 04/27/25 15:50 Respiratory Rate 20 04/27/25 15:50 Blood Pressure 120/81 04/27/25 15:50 Pulse Oximetry 99 04/27/25 15:50 Oxygen Delivery Room Air 04/27/25 15:50 reviewed [facility] Narrative Medical decision making narrative: Medical decision making narrative: Differential diagnosis considered: Mccracken virus, strep pharyngitis, allergic rhinitis, upper respiratory tract infection, sinusitis, rhinosinusitis, nasopharyngitis. viral pharyngitis, otitis media, otitis externa, pneumonia, bronchitis, viral cough syndrome, viral syndrome, and influenza.? Exam findings show no acute concerns or changes; patient is non-toxic appearing and is in no distress.? Patient is appropriate for outpatient treatment and follow-up.Patient is 36 weeks tested negative fot influenza, COVID and for strep has had positive exposure to strep will treat with oral Amoxicillin and if culture is negative patient may stop the antibiotic. Differential Diagnosis Differential Diagnosis: Differential diagnostic considerations for upper respiratory infection include upper respiratory infection, croup, otitis media, sinusitis, viral infection, bronchitis, influenza, pharyngitis, strep, uvulitis.? Lab Data [facility] Lab Attestation statement: I personally reviewed the patient's lab results. Lab results narrative: Influenza A&B negative, COVID antigen negative, Strep screen negative culture sent Labs: Lab Results 04/27/25 Range/Units 16:15 POC Influenza A Ag Negative (Negative) POC Influenza B Ag Negative (Negative) POC SARS CoV-2 Ag Negative (Negative) POC Grp A Strep Screen Negative (Negative) reviewed Critical Care Time Critical Care Time Critical Care Time: No Discharge Plan Discharge Clinical Impression: Exposure to group A Streptococcus Pharyngitis Qualifiers: Pharyngitis/tonsillitis etiology: unspecified etiology Qualified Code(s): J02.9 - Acute pharyngitis, unspecified Patient Disposition: Home Condition: Stable Instructions: Antibiotic Form, Pharyngitis (ED) Additional Instructions: Increase fluids especially juices and water Jbxa-yqi-todyjyb cough and cold medicine of your choice for your symptoms Tylenol for any fever or pain heat to the face 20-30 minutes 4-6 times a day for pain Salt water gargles, throat lozenges or throat sprays as desired Antibiotic as directed-if strep culture is negative may stop oral antibiotic List of medications given to patient that are safe to take while pregnannt Patient Language: Mongolian Prescriptions: New amoxicillin 500 mg tablet 500 mg PO Q12H Qty: 20 0RF Rx Instructions: PATIENT WILL STOP ANTIBIOTIC IF CULTURE IS NEGATIVE No Action metformin 500 mg tablet extended release 24 hr PO ergocalciferol (vitamin D2) 1,250 mcg (50,000 unit) capsule PO DAILY iron PO DAILY Follow-up/Referrals: Nicanor Hannah MD [Primary Care Provider, [facility]] Time of Disposition: 17:09 Quality [place] Coma Scale Eyes: Open Verbal: Oriented and Alert Motor: Follows Commands Briana Coma Total Score: 15
[2025-04-27 17:01] LABS: EDCOVIDSCREEN Negative (Negative); EDINFLUASCREEN Negative (Negative); EDINFLUBSCREEN Negative (Negative); EDSTREPNEGPOS1 Negative (Negative)
--- OUTSIDE RECORDS SUMMARY | 2025-04-27 17:55 | XMS_ITS | Clinical Summary ---
Author Organization [facility] [employer] Address [address] [place] [address] Care Team Providers Care Field Court Researcher Name Role Phone Unavailable Primary Care Provider Unavailabl e Source Comments [facility] [employer],non-owned Affiliates and Associated Physician Practices is amultiple site organization consisting of ambulatory clinics and hospital sitesin [place], [place], [place] and [place]. This disclosure is being madepursuant to the Care Everywhere program and may not contain all information available regarding this patient. Last updated 18.[facility] [employer] Allergies No known active allergies Medications * [...]
--- OUTSIDE RECORDS SUMMARY | 2025-04-27 17:55 | XMS_ITS | Clinical Summary ---
Author Organization [address] Address [address] [place] [id number] Care Team Providers Care Termite Control Representative Name Role Phone Nicanor Hannah MD Primary Care Provider [phone] Allergies Active Allergy Reactions Criticality Noted Date [...] - 02/05/2025 11:59 PM CDT Hospital Encounter [facility] [address] [place] [address] Encounter for screening for cervical length Discharge Disposition: Discharge to home or self care 01/26/2025 12:23 PM CDT - 01/26/2025 11:59 PM CDT Hospital Encounter [facility] [address] [place] [address] Encounter for screening for cervical length Discharge [...] on file 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 CH: Report ID: [id number] Reading Location: [id number] Procedure Note Phillip Lorenzo MD - 02/08/2025 EXAM DESCRIPTION: US [...] by Phillip Lorenzo M.D. CH: Report ID: [id number] Reading Location: [id number] us Dione Magaña MD IMG OB US [...] by: Iraida Prather M.D. Dione Magaña MD [facility] US PROCEDURES Final Result from Last 3 Months Insurance AETNA SIG [id number] AETNA SIG [id number] AET[employer] SIG [id number] Care Teams Termite Control Representative Relationship Specialty Start Date End Date Nicanor Hannah MD [address] [address] PCP - General Family Medicine 01/25/25
--- OUTSIDE RECORDS SUMMARY | 2025-04-27 17:55 | XMS_ITS | Clinical Summary ---
Author Organization [facility] Address [address] [place] [address] Phone Care Team Providers Care Tube Building Machine Operator Name Role Phone Isabell Kaur MD Primary Care Provider [phone] Medications escitalopram (LEXAPRO) 20 MG TabletIndication s:Major [...] to complete this topic Insurance Care Teams Tube Building Machine Operator Relationship Specialty Start Date End Date Isabell Kaur MD [id number] [place] [address] PCP - General Pediatrics 02/05/18
== END 2025-04-27 17:10 | disposition home or self-care (01) ==
PROVIDERS: Emergency Provider Registered Nurse; PCP Family Medicine
DX: O99.513 Diseases of the respiratory system complicating pregnancy, third trimester (principal); J02.9 Acute pharyngitis, unspecified; Z3A.36 36 weeks gestation of pregnancy; Z20.818 Contact with and (suspected) exposure to other bacterial communicable diseases; Z20.828 Contact with and (suspected) exposure to other viral communicable diseases; Z87.891 Personal history of nicotine dependence
CPT/HCPCS: 87081; 87426; 87804; 87880; 99213; G0463